=== PATIENT | male | born 1950 | race Hispanic/Latino ===

== ENCOUNTER 2017-09-15 19:16 | Emergency (ER) | payer MEDICARE ==
[2017-09-15 20:00] LABS: #Lymphocytes 0.5 thou/uL (1.20-3.40); #Monocytes 0.5 thou/uL (0.11-0.59); #Neutrophils 4.1 thou/uL (1.40-6.50); %Basophils 0.2 % (0.0-1.0); %Eosinophils 0.8 % (0.0-10.0); %Lymphocytes 8.8 % (21.0-51.0); %Monocytes 10.3 % (0.0-10.0); Hematocrit 43.1 % (42.0-52.0); Mean Platelet Volume 8.3 fL (7.4-10.4); Red Blood Cell (RBC) Count 4.64 mill/uL (4.70-6.10); White Blood Cell (WBC) Count 5.1 thou/uL (4.8-10.8)
--- NOTE | 2017-09-15 20:11 | RAD ---
CHEST ONE VIEW: 09/15/17 HISTORY: Shortness of breath. COMPARISON: Chest one view 12/18/15. FINDINGS: Heart size is enlarged. Mild pulmonary venous congestion. No pneumothorax. Cardiac device is present with single lead defibrillator. Lead in good position. IMPRESSION: Cardiomegaly and mild pulmonary venous congestion. POS: [facility]
[2017-09-15 20:25] LABS: Troponin I 0.026 ng/mL (< 0.028)
[2017-09-15 20:33] LABS: Lactic Acid - Sepsis 2.6 mmol/L (0.5-2.2)
[2017-09-15 20:58] LABS: Bilirubin Negative (Negative); Blood, Urine Negative (Negative); Glucose, Urine (Dipstick) Negative (Negative); Ketone, Urine Negative (Negative); Nitrite Negative (Negative); Protein, Urine (Dipstick) Negative (Neg-Trace); Urobilinogen 0.2 mg/dL (0.2-1.0)
[2017-09-15 21:00] LABS: Bacteria/HPF None Seen HPF (None Seen); Hyaline Casts/LPF 0-3 HYALINE CAST LPF (0-3 Hyaline); RBC/HPF None Seen HPF (0-3); Squamous Epithelial None Seen HPF (0-3); WBC/HPF 0-3 HPF (0-3)
[2017-09-15 21:13] LABS: Calcium 9.5 mg/dL (7.8-10.44); Chloride 100 mmol/L (98-107)
[2017-09-15 21:14] LABS: Globulin 3.7 g/dL (2.4-3.5); Protein, Total 8.2 g/dL (5.8-8.1)
[2017-09-15 21:15] LABS: Anion Gap 17 mmol/L (10-20); Carbon Dioxide 21 mmol/L (23-31)
[2017-09-15 21:17] LABS: Alkaline Phosphatase 72 U/L (40-150); Calc. Creatinine Clearance 0 mL/min (70-130); Estimated GFR-MDRD 65
[2017-09-15 21:18] LABS: BUN (Urea Nitrogen) 16 mg/dL (8.4-25.7)
[2017-09-15 21:19] LABS: AST (SGOT) 24 U/L (5-34)
[2017-09-15 21:20] LABS: ALT (SGPT) 23 U/L (8-55); CK (CPK) 401 U/L (30-200)
== END 2017-09-16 00:58 | disposition home or self-care (01) ==
LOC: ERS 19:16
DX: I50.9 Heart failure, unspecified (principal); J06.9 Acute upper respiratory infection, unspecified; I25.2 Old myocardial infarction; Z87.891 Personal history of nicotine dependence
CPT/HCPCS: 36415; 71010; 80053; 81003; 81015; 82553; 83605; 83880; 84484; 85025; 87040; 93005; 94760; 96374; J0696

== ENCOUNTER 2018-01-12 19:12 | Inpatient (IN) | payer MEDICARE ==
[2018-01-12 19:51] LABS: Hemoglobin 14.1 g/dL (14.0-18.0); Mean Corpuscular HGB CONC 33.5 g/dL (32.0-36.0); Mean Corpuscular Hemoglobin 30.4 pg (27.0-31.0); Mean Corpuscular Volume 90.6 fl (80.0-94.0); Mean Platelet Volume 7.2 fL (7.4-10.4); Platelet Count 145 thou/uL (130-400); RBC Distribution Width 13.2 % (11.5-14.5); Red Blood Cell (RBC) Count 4.65 mill/uL (4.70-6.10); White Blood Cell (WBC) Count 10.7 thou/uL (4.8-10.8)
[2018-01-12 20:05] LABS: Band 18 % (5-11); Lymphocytes 4 % (21-51); MDiff Complete? YES; Monocytes 7 % (0-10); Neutrophil 70 % (42-75); PLT Morphology Comment Appears Adequate; RBC Morphology Normal; Reactive Lymphocytes 1 % (0-10)
[2018-01-12 20:13] LABS: ALT (SGPT) 19 U/L (8-55); AST (SGOT) 21 U/L (5-34); Albumin 3.9 g/dL (3.4-4.8); Alkaline Phosphatase 75 U/L (40-150); Anion Gap 13 mmol/L (10-20); BUN (Urea Nitrogen) 23 mg/dL (8.4-25.7); Bilirubin, Total 0.4 mg/dL (0.2-1.2); CK (CPK) 263 U/L (30-200); Calc. Creatinine Clearance 0 mL/min (70-130); Calcium 9.2 mg/dL (7.8-10.44); Carbon Dioxide 22 mmol/L (23-31); Chloride 103 mmol/L (98-107); Estimated GFR-MDRD 58; Globulin 3.3 g/dL (2.4-3.5); Glucose 158 mg/dL (80-115); Potassium 4.4 mmol/L (3.5-5.1); Protein, Total 7.2 g/dL (5.8-8.1); Sodium 134 mmol/L (136-145)
[2018-01-12 20:17] LABS: CKMB 4.4 ng/mL (0-6.6); Troponin I 0.039 ng/mL (< 0.028)
--- NOTE | 2018-01-12 20:23 | RAD ---
FRONTAL RADIOGRAPH CHEST 01/12/18 COMPARISON: 09/15/17 HISTORY: Shortness of breath, fall. FINDINGS: Midline sternotomy wires are present, fractured, and unchanged. Stable enlargement of the cardiac julieta houette. Single lead AICD present in stable position. There is diffuse increased linear interstitial density with pulmonary hyperinflation. There is hazy increased density noted in the cardiophrenic angle region on the right, new. This may represent medial right basilar volume loss or infectious pneumonitis. IMPRESSION: Hazy new increased density is seen in the medial right lung base. This could reflect infectious pneum onitis/aspiration. Recommend followup PA and lateral imaging of the chest following treatment to docu ment resolution. POS: [facility]
[2018-01-12] MEDS ORDERED: Azithromycin 250 MG TAB ONE (21:01)
--- NOTE | 2018-01-12 23:28 | PDOC.FPRHP ---
- History of Present Illness Chief Complaint: SOB History of Present Illness: 67 yo male presents with SOB for one month. Patient is not a great historian. He states he is normally SOB when walking, but it has gotten much worse to the point he can't walk across a room today. He notes he also fell down today because of his sob and weakness. Patient also states he had some left arm pain yesterday while walking. He has longstanding PAD that he sees Dr. Mayorga for and would like to have a stent placed in his right leg. He notes he has long standing lower extremity edema that is worse on the right. He denies chest pain , vision changes, unilateral weakness. He states he is able to lay flat in a bed. He does admit to 3 episodes of vomiting that occurred today. He states that he is compliant with his medications, but he did admit that he hasn't taken his Furosemide in over 2 weeks. His brother states that he often does not take his medications as prescribed. No other complaints today. ED Course: Rocephin Azithromycin - Allergies/Adverse Reactions Allergies Allergy/AdvReac Type Severity Reaction Status Date / Time No Known Allergies Allergy Verified 01/13/18 00:37 - Home Medications Medication Instructions Recorded Confirmed Type Aspirin [Aspirin Chewable Tablet] 81 mg PO DAILY #0 tab 12/17/15 01/13/18 Rx Atorvastatin Calcium [Lipitor] 40 mg PO HS #0 tab 12/17/15 01/13/18 Rx Metolazone [Zaroxolyn] 5 mg PO DAILY #0 tab 12/17/15 01/13/18 Rx Potassium Chloride [K-Dur] 20 meq PO DAILY #0 tab 12/17/15 01/13/18 Rx Carvedilol [Coreg] 6.25 mg PO BID 01/12/18 01/13/18 History Furosemide [Lasix] 40 mg PO DAILY 01/12/18 01/13/18 History Spironolactone 25 mg PO DAILY 01/12/18 01/13/18 History Clopidogrel Bisulfate [Plavix] 75 mg PO Q2DAYS 01/13/18 01/13/18 History Comments: Medication reconciliation was completed following an ED visit in August 2017. Patient states he does not know the medications he takes off the top of his head. He notes that he takes 7 medications. Further medication confirmation may be needed. - History PMHx: CHF, PA, PAD PSHx: Balloon Stent to Left leg 2017, 3 vessel CABG 2016, Skin graft as child. FHx: Heart Disease Social: Denies alcohol or illicit drug use. Patient had extensive smoking history quit in 2016. - Review of Systems General: denies: fever/chills, weight/appetite/sleep changes Eyes: denies: eye pain ENT: denies: nasal congestion, rhinorrhea Respiratory: reports: shortness of breath. denies: cough, congestion Cardiovascular: denies: chest pain, palpitation, orthopnea Gastrointestinal: reports: nausea, vomiting. denies: diarrhea Genitourinary: denies: incontinence, dysuria Skin: denies: rashes, lesions, jaundice Musculoskeletal: reports: swelling. denies: pain, tenderness, stiffness Neurological: denies: numbness, syncope Psychological: denies: anxiety, depression - Vital signs BP: [114/73] HR: [101] RR: [26] Tmax: [99.7] Pox: [96]% on [3L] Wt: [143kg] - Physical Exam Constitutional: NAD HEENT: PERRLA, grossly normal vision, grossly normal hearing, normal nasal mucosa, MMM Neck: supple, trachea midline Chest: no-tender to palpation (pacemaker device under skin.) Heart: RRR, normal S1/S2 -Heart: 3+ pitting edema bilaterally. Right lower leg swelling worse than Left. Lungs: no wheezing -Lungs: Diminished breath sounds bilaterally. No crackles or wheezes present. Abdomen: soft, non-tender, bowel sounds present, no masses/distention Musculoskeletal: ROM grossly normal Neurological: no focal deficit, CN II-XII intact -Neurological: Sensation deficit to Right lower extremity, longstanding. -Skin: Evidence of venous stasis of lower extremities worse on Right. Psychiatric: normal mood and affect, good judgment and insight, intact recent and remote memory FMR H&P: Results - Labs Result Diagrams: 01/12/18 19:40 01/13/18 02:10 Lab results: WBC 10.7 thou/uL (4.8-10.8) 01/12/18 19:40 Hgb 14.1 g/dL (14.0-18.0) 01/12/18 19:40 Hct 42.1 % (42.0-52.0) 01/12/18 19:40 MCV 90.6 fl (80.0-94.0) 01/12/18 19:40 Plt Count 145 thou/uL (130-400) 01/12/18 19:40 Band Neuts % (Manual) 18 % (5-11) H 01/12/18 19:40 Sodium 134 mmol/L (136-145) L 01/12/18 19:46 Potassium 4.4 mmol/L (3.5-5.1) 01/12/18 19:46 Chloride 103 mmol/L (98-107) 01/12/18 19:46 Carbon Dioxide 22 mmol/L (23-31) L 01/12/18 19:46 BUN 23 mg/dL (8.4-25.7) 01/12/18 19:46 Creatinine 1.23 mg/dL (0.6-1.3) 01/12/18 19:46 Glucose 158 mg/dL (80-115) H 01/12/18 19:46 Calcium 9.2 mg/dL (7.8-10.44) 01/12/18 19:46 Total Bilirubin 0.4 mg/dL (0.2-1.2) 01/12/18 19:46 AST 21 U/L (5-34) 01/12/18 19:46 ALT 19 U/L (8-55) 01/12/18 19:46 Alkaline Phosphatase 75 U/L (40-150) 01/12/18 19:46 Creatine Kinase 263 U/L (30-200) H 01/12/18 19:46 CK-MB (CK-2) 4.4 ng/mL (0-6.6) 01/12/18 19:40 B-Natriuretic Peptide 108.1 pg/mL (0-100) H 01/12/18 19:41 Serum Total Protein 7.2 g/dL (5.8-8.1) 01/12/18 19:46 Albumin 3.9 g/dL (3.4-4.8) 01/12/18 19:46 - EKG Interpretation EK lead EKG shows, sinus tachycardia, Rate (beats per minute): 105, ST segments normal, T waves normal, [place] normal, Other findings include:, septal infarct, age undetermined. FMR H&P: A/P - Problem List (1) Acute respiratory failure with hypoxia Current Visit: Yes Status: Acute Code(s): J96.01 - ACUTE RESPIRATORY FAILURE WITH HYPOXIA (2) CAP (community acquired pneumonia) Current Visit: Yes Status: Acute Code(s): J18.9 - PNEUMONIA, UNSPECIFIED ORGANISM (3) CHF (congestive heart failure) Current Visit: No Status: Chronic Code(s): I50.9 - HEART FAILURE, UNSPECIFIED (4) S/P CABG (coronary artery bypass graft) Current Visit: No Status: Chronic Code(s): Z95.1 - PRESENCE OF AORTOCORONARY BYPASS GRAFT (5) Elevated troponin Current Visit: Yes Status: Acute Code(s): R74.8 - ABNORMAL LEVELS OF OTHER SERUM ENZYMES (6) Hyperglycemia Current Visit: Yes Status: Acute Code(s): R73.9 - HYPERGLYCEMIA, UNSPECIFIED - Plan 1. Acute Hypoxic Respiratory Failure - New O2 requirement to 3L - Keep sats above 92% - Will attempt wean O2 when clinical able 2. CAP vs Pneumonitis - CXR shows hazy new infiltrate in medial R lung base - Repeat CXR ordered - Continue Antibiotics - Continue O2 supplementation. - Good Pulmonary Hygiene 3. CHF - Restart his home regimen - Strict I & Os - BNP 108 4. s/p CABG - Continue home medications when known. 5. Elevated Troponins - Trend - Will repeat EKG if symptomatic 6. Hyperglycemia - Check HgbA1c - Make treatment changes if needed CODE STATUS: FULL CODE Disposition: Stable, Will admit to Telemetry. FMR H&P: Upper Level - Pertinent history 67 yo male here for SOB and CP. Patient is poor historian, limiting information obtained in interview. Brother in room who provides some history. Hx of PA with 3v CABG in 2016, CHF, pacemaker. Patient reports 1 month history of worsening SOB, currently at rest. Assoc CP today at rest, emesis x 3, left shoulder pain when walking yesterday. Endorses compliance with medications, but then admits to not taking furosemide in the past 2 weeks. Only provider he sees is Dr. Mayorga, last saw him 1 month ago. - Pertinent findings Pulm: decreased breath sounds in all miller Card: mild tach, regular rhythm Extremities: b/l pitting edema, 2+ on left; 3+ on right Neuro: decreased sensation on right lower extremity - Plan Date/Time: 01/12/18 8526 IDavid DO, have evaluated this patient and agree with findings/plan as outlined by rn internal medicine resident. Pertinent changes/additions are listed here. 1. Pneumonitis vs PNA vs fluid overload Patient received 1 round of zithromycin/rocephin; will continue with that regimen 2. indeterminate trops continue to trend; EKG showed sinus tach; continue home meds 3. Hx CHF continue home meds, check ECHO; consider consult of cards tomorrow 4. Hx CAD Attending Addendum - Attending Addendum Date/Time: 01/13/18 0175 I personally evaluated the patient and discussed the management with Dr. Jay. I agree with the History, Examination, Assessment and Plan documented above with any addition or exceptions noted below. The patient presented with a 4 week history of worsening shortness of breath. He has had a cough but has not been taking his lasix for about 2 weeks. He was noted to have a possible pneumonia on XR. He is now requiring oxygen. 1. acute hypoxic respiratory failure, 2. CAP, 3. CHF. Will continue antibiotics rocephin and azithromycin, repeat CXR. Give IV lasix today. Pt is mildly tachycardic and with new O2 requirement will check D-dimer. Monitor I/O.
[2018-01-12] MEDS ORDERED: Acetaminophen 325 MG TAB PO PRN (23:44)
[2018-01-12] MEDS ORDERED: Ondansetron ODT 4 MG TAB PO PRN (23:44)
[2018-01-12 23:48] LABS: Troponin I 0.062 ng/mL (< 0.028)
[2018-01-13 02:38] LABS: Hemoglobin A1c 6.6 % (4.0-6.0)
[2018-01-13 02:43] LABS: Troponin I 0.062 ng/mL (< 0.028)
[2018-01-13 03:05] LABS: Anion Gap 11 mmol/L (10-20); BUN (Urea Nitrogen) 25 mg/dL (8.4-25.7); Calc. Creatinine Clearance 137 mL/min (70-130); Calcium 9.4 mg/dL (7.8-10.44); Carbon Dioxide 24 mmol/L (23-31); Chloride 103 mmol/L (98-107); Estimated GFR-MDRD 65; Glucose 140 mg/dL (80-115); Potassium 4.4 mmol/L (3.5-5.1); Sodium 134 mmol/L (136-145)
[2018-01-13 05:36] LABS: Troponin I 0.052 ng/mL (< 0.028)
--- NOTE | 2018-01-13 05:46 | PDOC.FM ---
- Subjective Subjective: This morning patient is sitting at the side of the bed, he states his back was getting sore from laying down. He denies orthopnea or cough but is still feeling SOB. He states he gets SOB walking to the restroom, this has been going on for 2 weeks or so. He has not taken his medications in 2 weeks. He states he got fed up with all the medications and was feeling "ready for it to end." He denies suicidal ideation but does feel ready to at times. He states he does still enjoy going to [employer] for coffee with his friends daily. Patient would like to be started on antidepressant and will try to establish PCP. - Objective Vital Signs & Weight: Vital Signs (12 hours) Temp Pulse Resp BP BP Pulse Ox 01/13/18 03:32 99.8 F H 90 36 H 121/59 L 91 L 01/13/18 00:38 95 01/13/18 00:05 98.9 F 102 H 24 H 132/68 95 Weight Weight 154.221 kg I&O: 01/11/18 01/12/18 01/13/18 06:59 06:59 06:59 Intake Total 240 Output Total 0 Balance 240 Result Diagrams: 01/12/18 19:40 01/13/18 02:10 <David Zacarias - Last Filed: 01/13/18 07:26> - Objective Vital Signs & Weight: Vital Signs (12 hours) Temp Pulse Resp BP Pulse Ox 01/13/18 08:15 99.8 F H 90 36 H 01/13/18 03:32 99.8 F H 90 36 H 121/59 L 91 L Weight Weight 154.221 kg I&O: 01/12/18 01/13/18 01/14/18 06:59 06:59 06:59 Intake Total 240 Output Total 0 Balance 240 Result Diagrams: 01/12/18 19:40 01/13/18 02:10 <Idalmis Vidal - Last Filed: 01/13/18 12:47> Phys Exam - Physical Examination Constitutional: NAD HEENT: PERRLA, moist MMs Neck: no nodes, full ROM Respiratory: no wheezing decreased breath sounds at R base, no crackles Cardiovascular: RRR, no significant murmur Gastrointestinal: soft, non-tender, no distention, positive bowel sounds +2 pitting edema to the ankle bilaterally, pulses diminished Neurological: non-focal, moves all 4 limbs Psychiatric: normal affect, A&O x 3 Skin: no rash, cap refill <2 seconds <David Zacarias - Last Filed: 01/13/18 07:26> Dx/Plan (1) Acute respiratory failure with hypoxia Code(s): J96.01 - ACUTE RESPIRATORY FAILURE WITH HYPOXIA Status: Acute (2) CAP (community acquired pneumonia) Code(s): J18.9 - PNEUMONIA, UNSPECIFIED ORGANISM Status: Acute (3) Elevated troponin Code(s): R74.8 - ABNORMAL LEVELS OF OTHER SERUM ENZYMES Status: Acute (4) Hyperglycemia Code(s): R73.9 - HYPERGLYCEMIA, UNSPECIFIED Status: Acute (5) CHF (congestive heart failure) Code(s): I50.9 - HEART FAILURE, UNSPECIFIED Status: Chronic (6) S/P CABG (coronary artery bypass graft) Code(s): Z95.1 - PRESENCE OF AORTOCORONARY BYPASS GRAFT Status: Chronic - Plan Plan: # Acute Hypoxic Respiratory Failure - Still on 3L this AM, satting to low 90s - Keep sats above 92% - Will attempt wean O2 when clinical able - Duonebs PRN # CAP vs Pneumonitis - CXR shows hazy new infiltrate in medial R lung base - Good Pulmonary Hygiene - 2V CXR this AM - cont azithromycin, rocephin # CHF - Restart his home regimen - Strict I & Os - BNP 108 - states ankle edema at baseline - echo ordered # s/p CABG - Continue home medications # Elevated Troponins - 0.039 -> 0.062-> 0.062 -> 0.052 # Hyperglycemia - A1C 6.6 # Depression - start lexapro 10mg - f/u with PCP, refer for psychotherapy code: full Disposition: Stable, anticipate 1-2 day stay, possible rehab placement <David Zacarias - Last Filed: 01/13/18 07:26> (1) Acute respiratory failure with hypoxia Code(s): J96.01 - ACUTE RESPIRATORY FAILURE WITH HYPOXIA Status: Acute (2) CAP (community acquired pneumonia) Code(s): J18.9 - PNEUMONIA, UNSPECIFIED ORGANISM Status: Acute (3) CHF (congestive heart failure) Code(s): I50.9 - HEART FAILURE, UNSPECIFIED Status: Chronic (4) S/P CABG (coronary artery bypass graft) Code(s): Z95.1 - PRESENCE OF AORTOCORONARY BYPASS GRAFT Status: Chronic (5) Elevated troponin Code(s): R74.8 - ABNORMAL LEVELS OF OTHER SERUM ENZYMES Status: Acute (6) Hyperglycemia Code(s): R73.9 - HYPERGLYCEMIA, UNSPECIFIED Status: Acute <Idalmis Vidal - Last Filed: 01/13/18 12:47> Attending Addendum - Attending Addendum Date/Time: 01/13/18 [id number] I personally evaluated the patient and discussed the management with Dr. Zacarias. I agree with the History, Examination, Assessment and Plan documented above with any addition or exceptions noted below. Will start on lexapro. Give a dose of IV lasix today. Check D-dimer. Try to wean O2. Continue antibiotics. <Idalmis Vidal - Last Filed: 01/13/18 12:47>
[2018-01-13] MEDS ORDERED: Furosemide 20 MG/2 ML VIAL SLOW IVP SCH (06:00)
[2018-01-13] MEDS: Enoxaparin Sodium 40 MG/0.4 ML SYRINGE SC SCH (09:14)
[2018-01-13] MEDS: Potassium Chloride 20 MEQ TAB PO SCH (09:15)
[2018-01-13] MEDS: Furosemide 80 MG TAB PO SCH (09:15)
[2018-01-13] MEDS: Carvedilol 3.125 MG TAB PO SCH ×2 (09:15→16:15)
[2018-01-13] MEDS: Clopidogrel Bisulfate 75 MG TAB PO SCH (09:16)
[2018-01-13] MEDS: Metolazone 5 MG TAB PO SCH (09:16)
[2018-01-13] MEDS: Escitalopram Oxalate 10 mg Tablet PO SCH (09:16)
--- NOTE | 2018-01-13 10:09 | PDOC.EVN ---
Event Note - Event Note Event Note: Ordered d-dimer as pt is low-risk for PE w/ Wells of 3 d-dimer barely elevated at 0.44 Will treat patient's pna, diurese, and follow clinically will do CTA if patient does not improve with treatment
--- NOTE | 2018-01-13 14:13 | RAD ---
CHEST 2 VIEWS: Date: 01/13/18 HISTORY: Pneumonia. COMPARISON: Chest radiograph prior day. FINDINGS: Heart size is enlarged. Improvement in right basilar air space opacity. There is some atelectasis in the lung bases. Defibrillator is present. Multiple median sternotomy wir es which are fractured. IMPRESSION: Improving opacity in the right lung base. POS: [facility]
--- NOTE | 2018-01-13 16:12 | PDOC.EVN ---
Event Note - Event Note Event Note: Spoke to on-call Journeyman Molder regarding PAD, leg swelling Patient's D-dimer was 0.44, no sign of infection, SOB improving per patient Will plan to consult patient's primary sql report developer Dr. Webber tomorrow for evaluation of PAD
[2018-01-13] MEDS ORDERED: Azithromycin 500 MG in Sodium Chloride 0.9% 250 ML 250 ML IVPB SCH (20:00)
[2018-01-13] MEDS ORDERED: cefTRIAXone\\ROCEPHIN 1 GM in Sodium Chloride 0.9% 100 ML IVPB SCH (20:00)
[2018-01-13] MEDS: Atorvastatin Calcium 40 MG TAB PO SCH (21:31)
[2018-01-13] MEDS: cefTRIAXone\\ROCEPHIN 1 GM, Syringe 0.4 ML in Sterile Water 9.6 ML SLOW IVP SCH (21:31)
[2018-01-14 07:10] LABS: Hemoglobin 13.8 g/dL (14.0-18.0); Mean Corpuscular HGB CONC 34.2 g/dL (32.0-36.0); Mean Corpuscular Hemoglobin 31.3 pg (27.0-31.0); Mean Corpuscular Volume 91.5 fl (80.0-94.0); Mean Platelet Volume 8.2 fL (7.4-10.4); Platelet Count 132 thou/uL (130-400); RBC Distribution Width 13.3 % (11.5-14.5); Red Blood Cell (RBC) Count 4.39 mill/uL (4.70-6.10); White Blood Cell (WBC) Count 6.7 thou/uL (4.8-10.8)
[2018-01-14 07:24] LABS: Anion Gap 13 mmol/L (10-20); BUN (Urea Nitrogen) 26 mg/dL (8.4-25.7); Calc. Creatinine Clearance 132 mL/min (70-130); Calcium 9.3 mg/dL (7.8-10.44); Carbon Dioxide 25 mmol/L (23-31); Chloride 98 mmol/L (98-107); Estimated GFR-MDRD 66; Glucose 129 mg/dL (80-115); Potassium 4.1 mmol/L (3.5-5.1); Sodium 132 mmol/L (136-145)
--- NOTE | 2018-01-14 07:53 | ULT ---
VENOUS DUPLEX SONOGRAM RIGHT LOWER EXTREMITY: Date: 01/14/18 HISTORY: Right leg pain and edema. FINDINGS: The right common femoral vein and greater saphenous junction were evaluated along with the femoral, d eep femoral, popliteal, and posterior tibial veins. There is good color and spectral Doppler flow, co mpression, and augmentation. IMPRESSION: No sonographic evidence of deep venous thrombosis within the right lower extremity. POS: [facility]
--- NOTE | 2018-01-14 08:37 | PDOC.FM ---
- Subjective Subjective: This morning the patient states that he is not feeling SOB although he does get SOB when sitting up to the side of the bed. He is still on 2.5L. He denies leg pain except when walking. The patient denies cough or sputum production. - Objective Vital Signs & Weight: Vital Signs (12 hours) Temp Pulse Resp BP Pulse Ox 01/14/18 04:00 97.5 F L 70 17 117/55 L 95 01/14/18 02:31 94 L Weight Weight 146.737 kg I&O: 01/13/18 01/14/18 01/15/18 06:59 06:59 06:59 Intake Total 240 1720 Output Total 0 3000 Balance 240 -1280 Result Diagrams: 01/14/18 06:55 01/14/18 06:55 <David Zacarias - Last Filed: 01/14/18 08:40> - Objective Vital Signs & Weight: Vital Signs (12 hours) Temp Pulse Pulse Pulse Resp BP BP 01/14/18 12:50 72 20 01/14/18 11:57 69 67 112/72 128/60 01/14/18 07:50 98.7 F 74 18 01/14/18 04:00 97.5 F L 70 17 01/14/18 02:31 BP Pulse Ox Pulse Ox Pulse Ox 01/14/18 12:50 117/59 L 96 01/14/18 11:57 96 97 01/14/18 07:50 123/58 L 92 L 01/14/18 04:00 117/55 L 95 01/14/18 02:31 94 L Weight Weight 146.737 kg I&O: 01/13/18 01/14/18 01/15/18 06:59 06:59 06:59 Intake Total 240 1720 Output Total 0 3000 Balance 240 -1280 Result Diagrams: 01/14/18 06:55 01/14/18 06:55 <Abiel Godinez - Last Filed: 01/14/18 13:59> Phys Exam - Physical Examination Constitutional: NAD HEENT: PERRLA, moist MMs Neck: no nodes, full ROM Respiratory: no wheezing mild decreased air movement, decreased breath sounds at RLL, no crackles Cardiovascular: RRR, no significant murmur, no rub Gastrointestinal: soft, non-tender, no distention, positive bowel sounds +3 pitting edema on the R, more erythematous up to the level of the midcalf Neurological: non-focal, normal sensation, moves all 4 limbs patient has increased TTP on RLE Psychiatric: normal affect, A&O x 3 <David Zacarias - Last Filed: 01/14/18 08:40> Dx/Plan (1) Acute respiratory failure with hypoxia Code(s): J96.01 - ACUTE RESPIRATORY FAILURE WITH HYPOXIA Status: Acute (2) CAP (community acquired pneumonia) Code(s): J18.9 - PNEUMONIA, UNSPECIFIED ORGANISM Status: Acute (3) Elevated troponin Code(s): R74.8 - ABNORMAL LEVELS OF OTHER SERUM ENZYMES Status: Acute (4) Hyperglycemia Code(s): R73.9 - HYPERGLYCEMIA, UNSPECIFIED Status: Acute (5) CHF (congestive heart failure) Code(s): I50.9 - HEART FAILURE, UNSPECIFIED Status: Chronic (6) S/P CABG (coronary artery bypass graft) Code(s): Z95.1 - PRESENCE OF AORTOCORONARY BYPASS GRAFT Status: Chronic - Plan Plan: # Acute Hypoxic Respiratory Failure - Still on 2.5L this AM, satting to low 90s - Keep sats above 92% - Patient still SOB when sitting up to the side of the bed - Duonebs PRN # CAP vs Pneumonitis - CXR shows hazy new infiltrate in medial R lung base - 2V CXR showed RLL opacity - cont azithromycin, rocephin # PAD - previous L femoral bypass - known R femoral occlusion from groin to knee per Cardiology - spoke to Dr. Mayorga this AM, will visit with patient - Doppler US negative for DVT on R, d-dimer 0.44 # Cellulitus vs Stasis Dermatitis - +3 pitting on the right - redness to the level of mid-calf - started Vancomycin 01/14 - blood cultures # CHF - Restart his home regimen - Lasix IV 40mg daily - Strict I & Os - BNP 108 - echo shows EF 50% # s/p CABG - Continue home medications # Elevated Troponins - 0.039 -> 0.062-> 0.062 -> 0.052 # Hyperglycemia - A1C 6.6 # Depression - start lexapro 10mg - f/u with PCP, refer for psychotherapy code: full Disposition: Stable, 1-2 days pending cardiology workup resolution of leg erythema <David Zacarias - Last Filed: 01/14/18 08:40> Attending Addendum - Attending Addendum Date/Time: 01/14/18 8880 I personally evaluated the patient and discussed the management with Dr. Zacarias. I agree with the History, Examination, Assessment and Plan documented above with any addition or exceptions noted below. Patient here and admitted for CAP. He is on Rocephin and Azithro and is feeling improved. Still has supplemental O2 requirement but has been able to ambulate a little further today. He has some expanding redness and warmth on the R lower extremity with known association of severe vascular disease in that leg. We will start him on Vancomycin and maria c the erythema to see how it responds. Awaiting Cardiology and CV input on whether anything can be done for his vascular disease. His dopplers were negative for DVT. Has some fluid overload and will try to diurese him a little better today. <Abiel Godinez - Last Filed: 01/14/18 13:59>
[2018-01-14] MEDS ORDERED: Furosemide 40 MG/4 ML VIAL SLOW IVP SCH ×2 (09:00→10:45)
[2018-01-14] MEDS: Potassium Chloride 20 MEQ TAB PO SCH (10:31)
[2018-01-14] MEDS: Clopidogrel Bisulfate 75 MG TAB PO SCH (10:31)
[2018-01-14] MEDS: Metolazone 5 MG TAB PO SCH (10:31)
[2018-01-14] MEDS: Carvedilol 3.125 MG TAB PO SCH ×2 (10:31→18:31)
[2018-01-14] MEDS: Azithromycin 250 MG TAB PO SCH (10:32)
[2018-01-14] MEDS: Escitalopram Oxalate 10 mg Tablet PO SCH (10:32)
[2018-01-14] MEDS: Enoxaparin Sodium 40 MG/0.4 ML SYRINGE SC SCH (10:34)
[2018-01-14] MEDS: Furosemide 80 MG TAB PO SCH (10:48)
[2018-01-14 14:04] VITALS: BMI 49.1
[2018-01-14] MEDS: cefTRIAXone\\ROCEPHIN 1 GM, Syringe 0.4 ML in Sterile Water 9.6 ML SLOW IVP SCH (20:36)
[2018-01-14] MEDS: Atorvastatin Calcium 40 MG TAB PO SCH (20:36)
[2018-01-15 06:34] LABS: Anion Gap 14 mmol/L (10-20); BUN (Urea Nitrogen) 34 mg/dL (8.4-25.7); Calc. Creatinine Clearance 107 mL/min (70-130); Calcium 9.6 mg/dL (7.8-10.44); Carbon Dioxide 32 mmol/L (23-31); Chloride 94 mmol/L (98-107); Estimated GFR-MDRD 55; Glucose 124 mg/dL (80-115); Potassium 3.9 mmol/L (3.5-5.1); Sodium 136 mmol/L (136-145)
--- NOTE | 2018-01-15 07:47 | PDOC.FM ---
- Subjective Subjective: This morning the patient denies shortness of breath or leg pain. He states he was able to walk skilled nursing down the hallway yesterday. He denies issues with PO intake. Upon arrival in the room this AM the patient's nasal canula was hanging outside of his nose. - Objective Vital Signs & Weight: Vital Signs (12 hours) Pulse Resp Pulse Ox 01/15/18 07:33 69 16 97 01/15/18 00:14 95 Weight Admit Weight 155.582 kg Weight 139.57 kg I&O: 01/14/18 01/15/18 01/16/18 06:59 06:59 06:59 Intake Total 1720 1380 Output Total 3000 4175 Balance -9361 -0011 Result Diagrams: 01/14/18 06:55 01/15/18 06:16 <David Zacarias - Last Filed: 01/15/18 07:50> - Objective Vital Signs & Weight: Vital Signs (12 hours) Temp Pulse Pulse Pulse Resp BP BP 01/15/18 11:32 62 20 01/15/18 09:12 97.6 F 01/15/18 08:41 73 62 134/61 132/73 01/15/18 08:00 01/15/18 07:33 69 16 01/15/18 07:17 60 18 BP Pulse Ox Pulse Ox Pulse Ox 01/15/18 11:32 115/66 93 L 01/15/18 09:12 01/15/18 08:41 96 95 01/15/18 08:00 97 01/15/18 07:33 97 01/15/18 07:17 121/59 L 98 Weight Admit Weight 155.582 kg Weight 146.692 kg I&O: 01/14/18 01/15/18 01/16/18 06:59 06:59 06:59 Intake Total 1720 1380 Output Total 3000 4175 Balance -6214 -3439 Result Diagrams: 01/14/18 06:55 01/15/18 06:16 <Wood Rudd - Last Filed: 01/15/18 12:39> Phys Exam - Physical Examination Constitutional: NAD HEENT: PERRLA, moist MMs Neck: no nodes, full ROM Mild exp wheezes bilaterally, good air movement, mild congestion RLL Cardiovascular: RRR, no significant murmur Gastrointestinal: soft, non-tender, no distention, positive bowel sounds +3 pitting edema to the mid calfe on R, +3 to ankle on L Neurological: non-focal, moves all 4 limbs Psychiatric: normal affect, A&O x 3 Skin: no rash, cap refill <2 seconds <David Zacarias - Last Filed: 01/15/18 07:50> Dx/Plan (1) Acute respiratory failure with hypoxia Code(s): J96.01 - ACUTE RESPIRATORY FAILURE WITH HYPOXIA Status: Acute (2) CAP (community acquired pneumonia) Code(s): J18.9 - PNEUMONIA, UNSPECIFIED ORGANISM Status: Acute (3) Elevated troponin Code(s): R74.8 - ABNORMAL LEVELS OF OTHER SERUM ENZYMES Status: Acute (4) Hyperglycemia Code(s): R73.9 - HYPERGLYCEMIA, UNSPECIFIED Status: Acute (5) CHF (congestive heart failure) Code(s): I50.9 - HEART FAILURE, UNSPECIFIED Status: Chronic (6) S/P CABG (coronary artery bypass graft) Code(s): Z95.1 - PRESENCE OF AORTOCORONARY BYPASS GRAFT Status: Chronic - Plan Plan: # Acute Hypoxic Respiratory Failure - on 2L overnight, NC hanging out of nose this morning - Keep sats above 92% - Patient still SOB when sitting up to the side of the bed - Duonebs PRN - walking program # CAP vs Pneumonitis - CXR shows hazy new infiltrate in medial R lung base - 2V CXR showed RLL opacity - cont azithromycin, rocephin # PAD - previous L femoral bypass - known R femoral occlusion from groin to knee per Cardiology - Doppler US negative for DVT on R, d-dimer 0.44 - will f/u with Dr. Webber for future plan # Cellulitus vs Stasis Dermatitis - +3 pitting on the right - redness to the level of mid-calf - started Vancomycin 01/14 - blood cultures # CHF - Restart his home regimen - home oral 80mg lasix - Strict I & Os - BNP 108 - echo shows EF 50% # s/p CABG - Continue home medications # Elevated Troponins - 0.039 -> 0.062-> 0.062 -> 0.052 # Hyperglycemia - A1C 6.6 # Depression - start lexapro 10mg - f/u with PCP, refer for psychotherapy code: full Disposition: plan to look for placement today <David Zacarias - Last Filed: 01/15/18 07:50> Attending Addendum - Attending Addendum Date/Time: 01/15/18 8149 I personally evaluated the patient and discussed the management with Dr. Zacarias I agree with the History, Examination, Assessment and Plan documented above with any addition or exceptions noted below. Patient continue to improve looking into placement options not good candidate to return home at this time. Right lower extremity with stasis dermatitis complicated by cellulitis improved. History of PAD RLE not amenable to minimally invasive procedures patient asymptomatic at present regard claudication albeit minimal activity. <Wood Rudd - Last Filed: 01/15/18 12:39>
--- NOTE | 2018-01-15 09:08 | CON ---
DATE OF SERVICE: 01/14/2018 REASON FOR CONSULTATION: Acute on chronic systolic heart failure. HISTORY OF PRESENT ILLNESS: Mr. Santoro is a very pleasant 67-year-old gentleman who I had seen him i n the past. He has a history of [place], CAD status post bypass surgery in addition who has severe PVD. There has also been concern for noncompliance. He recently presented with increased shortness of janessa ath. He was initially diagnosed with pneumonia, placed on antibiotic therapy. He states he has had increased shortness of breath, increased weight and swelling. He was seen and e valuated in the office 2-3 months ago. At that time, he admitted to difficulty with compliance with sodium in addition to fluids. His medication list was also not updated and he was unsure of his medi cations. He says he has had PND, orthopnea and in addition he had significant lower extremity edema, right greater than left. 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 ALLERGIES: None. HOME MEDICATIONS: From his previous list, although unsure on accuracy, carvedilol, spironolactone, P lavix, Lasix, Lipitor, potassium, and metolazone. REVIEW OF SYSTEMS: Ten-point review of systems is reviewed and as above, otherwise negative. PHYSICAL EXAMINATION: GENERAL: Patient is a pleasant male/female who is in no acute distress. The patient appears his/her stated age. VITAL SIGNS: Blood pressure 121/57, pulse 64, temperature 97.5. NEUROLOGIC: The patient is alert and oriented times 3 with no focal neurologic deficits. HEENT: Sclerae without icterus. Mouth has moist mucous membranes with normal pallor. NECK: No JVD. Carotid upstroke brisk. No bruits bilaterally. LUNGS: Few crackles noted bilaterally. BACK: No scoliosis or kyphosis. CARDIAC: Regular rate and rhythm with normal S1 and S2. No S3 or S4 noted. No significant rubs, murmurs, thrills, or gallops noted throughout the precordium. PMI is not displa lexis. There is no parasternal heave. ABDOMEN: Soft, nontender, nondistended. No peritoneal signs present. No hepatosplenomegaly. No abnormal striae. EXTREMITIES: A 2+ to 3+ pitting edema, right greater than left. PERTINENT LABS: Hemoglobin 13.8, white blood cell count 6.7, platelet count 132. IMPRESSION: 1. Acute on chronic systolic heart failure. 2. Ischemic cardiomyopathy. 3. ? pneumonia. 4. Noncompliance. 5. Remote tobacco abuse. RECOMMENDATIONS: Again, I counseled Mr. Santoro on the importance of sodium discretion. He has a bro ther who appears frustrated was in the room. His brother continues to be concerned about lower extre mity edema. I did state this is likely multifactorial given his cardiomyopathy. Dietary discretion, increase fluids and unsure about current medications. I also stated the right greater than left akash ma is likely related to removal of saphenous vein graft versus bypass will always be larger than the left. From my standpoint, we would continue with metolazone in addition to Lasix. We will change Lasix to 40 mg IV b.i.d. Mr. Santoro continues to slowly increase in weight. In mid 2015, he weighed 267 and slowly increased into the lower 300. In 06/2017, he was a 310 and was seen and evaluated in the offi ce 3 weeks ago and was up to 336. Continue aggressive diuresis and antibiotic therapy as appropriate per primary team.
--- NOTE | 2018-01-15 09:14 | CON ---
DATE OF CONSULTATION: 01/15/2018 HISTORY OF PRESENT ILLNESS: Mr. Santoro is doing better. He has diuresed overnight. Again, weight f elt to be inaccurate. Per the chart, it appears his weight was 340 down to 323 now 307. So from the records, it appears he has lost 33 pounds, but only -3000 out net per I's and O's. PHYSICAL EXAMINATION: GENERAL: Patient is a pleasant male who is in no acute distress. The patient appears his stated age. VITAL SIGNS: Blood pressure 120/59, pulse 69, respirations 20. NEUROLOGIC: The patient is alert and oriented times 3 with no focal neurologic deficits. HEENT: Sclerae without icterus. Mouth has moist mucous membranes with normal pallor. NECK: No JVD. Carotid upstroke brisk. No bruits bilaterally. LUNGS: Clear to auscultation with unlabored respirations. BACK: No scoliosis or kyphosis. CARDIAC: Regular rate and rhythm with normal S1 and S2. No S3 or S4 noted. No significant rubs, murmurs, thrills, or gallops noted throughout the precordium. PMI is not displa lexis. There is no parasternal heave. ABDOMEN: Soft, nontender, nondistended. No peritoneal signs present. No hepatosplenomegaly. No abnormal striae. EXTREMITIES: A 2+ femoral and 2+ dorsalis pedis pulses. No cyanosis, clubbing, or edema. SKIN: No gross abnormalities. IMPRESSION: 1. Acute on chronic systolic heart failure. 2. Noncompliance. 3. Coronary artery disease. 4. Status post bypass surgery. 5. Ischemic cardiomyopathy. RECOMMENDATIONS: 1. Change p.o. to IV Lasix. 2. Again, employee counselor on salt discretion. 3. Continue to monitor potassium levels. 4. Bedside scale with daily weights.
[2018-01-15] MEDS: Metolazone 5 MG TAB PO SCH (09:21)
[2018-01-15] MEDS: Enoxaparin Sodium 40 MG/0.4 ML SYRINGE SC SCH (09:21)
[2018-01-15] MEDS: Furosemide 40 MG/4 ML VIAL SLOW IVP SCH ×2 (09:21→14:04)
[2018-01-15] MEDS: Azithromycin 250 MG TAB PO SCH (09:21)
[2018-01-15] MEDS: Potassium Chloride 20 MEQ TAB PO SCH (09:22)
[2018-01-15] MEDS: Clopidogrel Bisulfate 75 MG TAB PO SCH (09:22)
[2018-01-15] MEDS: Carvedilol 3.125 MG TAB PO SCH ×2 (09:22→17:28)
[2018-01-15] MEDS: Escitalopram Oxalate 10 mg Tablet PO SCH (09:22)
--- NOTE | 2018-01-15 10:39 | PQF ---
DATE: 01-15-18 ATTN: DR. CYNDI LONG / DR. CANDIDO GRAJEDA Please exercise your independent, professional judgment in responding to the clarification form. Clinical indicators are provided on the bottom of this form for your review Please check appropriate box(s): BMI > 40 with associated diagnosis of: (check one) [ ] Morbid (Severe) Obesity [ ] Due to excess calories [ ] Overweight [ ] Obesity [ ] Other diagnosis [ ] Unable to determine In addition, please specify: Present on Admission (POA): [ ] Yes [ ] No [ ] Unable to Determine For continuity of documentation, please document condition throughout progress notes and discharge summary. Thank You. BMI < 19 Under weight 19 - 24.9 Healthy 25.0 - 29.9 Slightly Overweight 30.0 - 34.9 Obese 35.0 - 39.9 Severely Obese 40.0 and Over Morbidly Obese CLINICAL INDICATORS - SIGNS / SYMPTOMS / LABS BMI of: 49.[address] RODRÍGUEZ 01-15-18: MR. PRUITT CONTINUES TO INCREASE IN WEIGHT. IN MID 2015, HE WEIGHED 267 AND SLOWLY INCREASED INTO THE LOWER 300. IN , HE WAS 310 AND WAS SEEN AND EVALUATED IN THE OFFICE 3 WKS AGO AND WAS UP TO 336. DENTAL SCHEDULER CONSULT 01-14-18: Patient has a very good appetite, but admits to "eating foods he knows he shouldn't" for the last month. He has been gaining weight, which he knows is fluid, UBW is 315 lbs. PT ASSESSMENT 01-13-18: Pt admitted /c SOB. Pt's admission complicated by continued SOB and R LE swelling. Pt will benefit from skilled PT services to improve endurance, functional mobility and gait. RISK FACTORS: H&P: PAD, CHF, [place], CABG X3, SKIN GRAFT A CHILD TREATMENTS: DENTAL SCHEDULER CONSULT 01-14-18: 1. Recommend a Heart Healthy/ Consistent Carb (2000 shannan) diet 2. RD to add SF Mighty Shakes BID to best meet estimated needs (This form is maintained as a part of the permanent medical record) 2014 [employer]. All Rights Reserved [email or web address] [email or web address] Office: [phone] [facility]
--- NOTE | 2018-01-15 11:00 | PQF ---
DATE: 01-15-18 ATTN: DR. CYNDI LONG/ DR. CANDIDO GRAJEDA Please exercise your independent, professional judgment in responding to the clarification form. Clinical indicators are provided on the bottom of this form for your review Please check appropriate box(s): [ ] Demand Ischemia [ ] VT (Type: ) [ ] Other diagnosis [ ] Unable to determine In addition, please specify: Present on Admission (POA): [ ] Yes [ ] No [ ] Unable to determine For continuity of documentation, please document condition throughout progress notes and discharge summary. Thank You. CLINICAL INDICATORS - SIGNS / SYMPTOMS/ LABS are present in the medical record: Lab Results: TROPONIN: 01-12-18: 0.039 0.062 01-13-18: 0.062 0.052 H&P: ACUTE ELEVATED TROPONIN RISK FACTORS: H&P: HX OF [place], CABG, PACEMAKER, CAD, PAD, ISCHEMIC CARDIOMYOPATHY TREATMENT: SERIES OF TROPONIN CARDIOLOGY CONSULT (This form is maintained as a part of the permanent medical record) 2014 [employer]. All Rights Reserved AMADO [email or web address] Office: [phone] [facility]
[2018-01-15 20:34] LABS: Vancomycin, Trough 20.2 ug/mL
[2018-01-15] MEDS: Atorvastatin Calcium 40 MG TAB PO SCH (20:48)
[2018-01-15] MEDS: cefTRIAXone\\ROCEPHIN 1 GM, Syringe 0.4 ML in Sterile Water 9.6 ML SLOW IVP SCH (20:49)
--- NOTE | 2018-01-16 08:09 | RAD ---
PORTABLE CHEST: Date: 01/16/18 PROVIDED CLINICAL HISTORY: Congestive heart failure. FINDINGS: Comparison with 01/13/18. The cardiac silhouette appears enlarged. Left subclavian cardiac pacing device is noted with lead tip overlying the expected location of RA. No focal consolidation, pleural fluid, or pneumothorax appare nt. IMPRESSION: Cardiomegaly without evidence for an acute cardiopulmonary process. POS: [facility]
[2018-01-16 08:29] LABS: Vancomycin, Trough 11.9 ug/mL
[2018-01-16 08:30] LABS: Anion Gap 15 mmol/L (10-20); BUN (Urea Nitrogen) 38 mg/dL (8.4-25.7); Calc. Creatinine Clearance 117 mL/min (70-130); Calcium 9.9 mg/dL (7.8-10.44); Carbon Dioxide 32 mmol/L (23-31); Chloride 90 mmol/L (98-107); Estimated GFR-MDRD 58; Glucose 141 mg/dL (80-115); Potassium 3.5 mmol/L (3.5-5.1); Sodium 133 mmol/L (136-145)
[2018-01-16] MEDS: Escitalopram Oxalate 10 mg Tablet PO SCH (08:55)
[2018-01-16] MEDS: Carvedilol 3.125 MG TAB PO SCH (08:55)
[2018-01-16] MEDS: Metolazone 5 MG TAB PO SCH (08:55)
[2018-01-16] MEDS: Potassium Chloride 20 MEQ TAB PO SCH (08:56)
[2018-01-16] MEDS: Azithromycin 250 MG TAB PO SCH (08:56)
[2018-01-16] MEDS: Furosemide 40 MG/4 ML VIAL SLOW IVP SCH (08:56)
[2018-01-16] MEDS: Clopidogrel Bisulfate 75 MG TAB PO SCH (08:57)
[2018-01-16] MEDS: Enoxaparin Sodium 40 MG/0.4 ML SYRINGE SC SCH (08:57)
[2018-01-16 09:07] VITALS: TEMP 97.7
--- NOTE | 2018-01-16 10:03 | PDOC.FM ---
- Subjective Subjective: This morning the patient denies SOB or cough. He has been off oxygen all night and states he slept well. - Objective Vital Signs & Weight: Vital Signs (12 hours) Temp Pulse Resp BP BP Pulse Ox 01/16/18 09:00 97.7 F 64 18 138/84 92 L 01/16/18 07:26 97.6 F 56 L 20 01/16/18 05:38 94 L 01/16/18 04:00 97.6 F 56 L 20 141/71 H 93 L Weight Admit Weight 155.582 kg Weight 146.51 kg I&O: 01/15/18 01/16/18 01/17/18 06:59 06:59 06:59 Intake Total 1380 1230 Output Total 4175 3100 Balance -6988 -8304 Result Diagrams: 01/14/18 06:55 01/16/18 07:58 <David Zacarias - Last Filed: 01/16/18 11:18> - Objective Vital Signs & Weight: Vital Signs (12 hours) Temp Pulse Resp BP Pulse Ox 01/16/18 11:40 64 18 121/64 01/16/18 09:00 97.7 F 64 18 138/84 92 L 01/16/18 07:26 97.7 F 64 20 92 L Weight Admit Weight 155.582 kg Weight 146.51 kg I&O: 01/15/18 01/16/18 01/17/18 06:59 06:59 06:59 Intake Total 1380 1230 480 Output Total 4175 3100 1000 Duable Chinese -9980 -0616 -520 Result Diagrams: 01/14/18 06:55 01/16/18 07:58 <Wood Rudd - Last Filed: 01/16/18 18:47> Phys Exam - Physical Examination Constitutional: NAD HEENT: PERRLA, moist MMs Neck: no nodes, full ROM Respiratory: no wheezing, clear to auscultation bilateral Cardiovascular: RRR, no significant murmur, no rub Gastrointestinal: soft, non-tender, no distention, positive bowel sounds morbidly obese Musculoskeletal: pulses present +3 pitting edema to R mid-calf, +1 to L ankle Neurological: non-focal, moves all 4 limbs Psychiatric: normal affect, A&O x 3 Skin: cap refill <2 seconds Deviation from normal: erythema to R leg has decreased, no warmth to touch <David Zacarias - Last Filed: 01/16/18 11:18> Dx/Plan (1) Acute respiratory failure with hypoxia Code(s): J96.01 - ACUTE RESPIRATORY FAILURE WITH HYPOXIA Status: Acute (2) CAP (community acquired pneumonia) Code(s): J18.9 - PNEUMONIA, UNSPECIFIED ORGANISM Status: Acute (3) Elevated troponin Code(s): R74.8 - ABNORMAL LEVELS OF OTHER SERUM ENZYMES Status: Acute (4) Hyperglycemia Code(s): R73.9 - HYPERGLYCEMIA, UNSPECIFIED Status: Acute (5) CHF (congestive heart failure) Code(s): I50.9 - HEART FAILURE, UNSPECIFIED Status: Chronic (6) S/P CABG (coronary artery bypass graft) Code(s): Z95.1 - PRESENCE OF AORTOCORONARY BYPASS GRAFT Status: Chronic - Plan Plan: # Acute Hypoxic Respiratory Failure - RA overnight - Keep sats above 92% -exercise tolerance is improved per patient - Fadia SAPPN - walking program # CHF - Restart his home regimen - home oral 80mg lasix, no increase to dose because patient was not taking it before coming in - -1800 mls overnight - Strict I & Os - BNP 108 - echo shows EF 50% # CAP vs Pneumonitis - CXR shows hazy new infiltrate in medial R lung base - 2V CXR showed RLL opacity - Repeat CXR shows no acute cardiopulmonary process - home with azithromycin # PAD - previous L femoral bypass - known R femoral occlusion from groin to knee per Cardiology - Doppler US negative for DVT on R, d-dimer 0.44 - will f/u with Dr. Webber # Cellulitus vs Stasis Dermatitis - +3 pitting on the right - redness decreased to level of ankle - home with clindamycin - started Vancomycin 01/14 - blood cultures # s/p CABG - Continue home medications # Elevated Troponins - 0.039 -> 0.062-> 0.062 -> 0.052 # Hyperglycemia - A1C 6.6 # Depression - start lexapro 10mg - f/u with PCP, refer for psychotherapy code: full Disposition: discharge to cardiac rehab today <Davdi Zacarias - Last Filed: 01/16/18 11:18> Attending Addendum - Attending Addendum Date/Time: 01/16/18 3101 I personally evaluated the patient and discussed the management with Dr. Zacarias I agree with the History, Examination, Assessment and Plan documented above with any addition or exceptions noted below. <Wood Rudd - Last Filed: 01/16/18 18:47>
[2018-01-16 11:45] VITALS: BP 121/64
--- NOTE | 2018-01-17 00:49 | DIS-2 ---
DATE OF ADMISSION: 01/12/2018 DATE OF DISCHARGE: 01/16/2018 RESIDENT: Dr. David Zacarias. ADMITTING ATTENDING: Dr. Idalmis Vidal. DISCHARGE ATTENDING: Dr. Wood Rudd. CONSULTATIONS: Cardiology, Dr. Mayorga. PROCEDURES: Doppler ultrasound right leg. PRIMARY DIAGNOSES: Community-acquired pneumonia, congestive heart failure exacerbation. SECONDARY DIAGNOSES: Acute hypoxic respiratory failure, peripheral artery disease, cellulitis, histo ry of coronary artery bypass graft, demand ischemia, hyperglycemia, and depression. DISCHARGE MEDICATIONS: Azithromycin 500 mg daily, Lexapro 10 mg daily, metolazone 5 mg daily, Bactri m 1 tablet twice daily, aspirin 81 mg, atorvastatin 40 mg, potassium 20 mEq daily, Lasix 40 mg daily, carvedilol 6.25 mg b.i.d., spironolactone 25 mg daily, and Plavix 75 mg daily. DISCONTINUED MEDICATIONS: None. HISTORY OF PRESENT ILLNESS AND HOSPITAL COURSE: A 67-year-old male presented to the ED with shortnes s of breath which he said was going on for one month or so, but was getting progressively worse over the last 3 or 4 days. He states he is short of breath with walking, but has gotten worse to the poin t that he cannot walk around the room. He states he had a fall recently because of the shortness of breath and weakness. He states he has longstanding peripheral artery disease for which he sees Dr. Jorge aguila. He denied chest pain, visual changes or weakness at time of admission. He states he was a ble to lay flat in bed. He states that he was not compliant with all of his medications and he had s kipped them for about 2 weeks. The patient was found to be in acute hypoxic respiratory failure requiring about 3 liters of oxygen w hen he was admitted. He was started on antibiotics for presumed pneumonia. He was also diuresed ext ensively throughout the course of the stay. He was seen and evaluated by Dr. Mayorga, who stated t hat there is no indication for further work on his right leg at this time, but his shortness of breat h is likely secondary to congestive heart failure exacerbation. The patient did develop a cellulitis on the right leg, which was treated effectively with antibiotics during the stay. His swelling was decreased during the course of the stay. Weights were unreliable during his stay, but he was diurese d about 7 liters during the time in the hospital. Attempted to get outpatient or inpatient rehabilit ation setup for the patient, but his insurance denied it. Patient elected for outpatient cardiac melodie ab therapy and says he will follow up with this. When he came in, the patient was very depressed sta ting that he was ready for it at the end. The patient was started on Lexapro and recommended to foll ow up outpatient with psychotherapy. DISPOSITION: Stable, guarded long-term prognosis. DISCHARGE INSTRUCTIONS: 1. Location: Home. 2. Activity: As tolerated. 3. Diet: Heart healthy. 4. Followup: [facility] in [address] Mayorga, 1-2 weeks. 5. Followup Appointment: Please set up the patient with psychotherapy for his depression. Please e valuate his fluid status. Please assure he is following up with cardiac rehab.
--- NOTE | 2018-01-17 08:58 | PQF ---
DATE: 01-15-18 ATTN: DR. CYNDI LONG/ DR. CANDIDO GRAJEDA Please exercise your independent, professional judgment in responding to the clarification form. Clinical indicators are provided on the bottom of this form for your review Please check appropriate box(s): BMI > 40 with associated diagnosis of: (check one) [ ] Morbid (Severe) Obesity [ ] Due to excess calories [ ] Overweight [ ] Obesity [ ] Other diagnosis [ ] Unable to determine In addition, please specify: Present on Admission (POA): [ ] Yes [ ] No [ ] Unable to Determine For continuity of documentation, please document condition throughout progress notes and discharge summary. Thank You. BMI < 19 Under weight 19 - 24.9 Healthy 25.0 - 29.9 Slightly Overweight 30.0 - 34.9 Obese 35.0 - 39.9 Severely Obese 40.0 and Over Morbidly Obese CLINICAL INDICATORS - SIGNS / SYMPTOMS / LABS BMI of: 49.[address] RODRÍGUEZ 01-15-18: MR. PRUITT CONTINUES TO INCREASE IN WEIGHT. IN MID 2015, HE WEIGHED 267 AND SLOWLY INCREASED INTO THE LOWER 300. IN , HE WAS 310 AND WAS SEEN AND EVALUATED IN THE OFFICE 3 WKS AGO AND WAS UP TO 336. OFFSET PRESS OPERATOR HELPER CONSULT 01-14-18: Patient has a very good appetite, but admits to "eating foods he knows he shouldn't" for the last month. He has been gaining weight, which he knows is fluid, UBW is 315 lbs. PT ASSESSMENT 01-13-18: Pt admitted /c SOB. Pt's admission complicated by continued SOB and R LE swelling. Pt will benefit from skilled PT services to improve endurance, functional mobility and gait. RISK FACTORS: H&P: PAD, CHF, [place], CABG X3, SKIN GRAFT A CHILD TREATMENTS: OFFSET PRESS OPERATOR HELPER CONSULT 01-14-18: 1. Recommend a Heart Healthy/ Consistent Carb (2000 shannan) diet 2. RD to add SF Mighty Shakes BID to best meet estimated needs (This form is maintained as a part of the permanent medical record) 2014 [employer]. All Rights Reserved [email or web address] [email or web address] Office: [phone] [facility]
--- NOTE | 2018-01-23 08:25 | PQF ---
DATE: 01-15-18 ATTN: DR. CYNDI LONG Please exercise your independent, professional judgment in responding to the clarification form. Clinical indicators are provided on the bottom of this form for your review Please check appropriate box(s): BMI > 40 with associated diagnosis of: (check one) [ ] Morbid (Severe) Obesity [ ] Due to excess calories [ ] Overweight [ ] Obesity [ ] Other diagnosis [ ] Unable to determine In addition, please specify: Present on Admission (POA): [ ] Yes [ ] No [ ] Unable to Determine For continuity of documentation, please document condition throughout progress notes and discharge summary. Thank You. BMI < 19 Under weight 19 - 24.9 Healthy 25.0 - 29.9 Slightly Overweight 30.0 - 34.9 Obese 35.0 - 39.9 Severely Obese 40.0 and Over Morbidly Obese CLINICAL INDICATORS - SIGNS / SYMPTOMS / LABS BMI of: 49.[address] RODRÍGUEZ 01-15-18: MR. PRUITT CONTINUES TO INCREASE IN WEIGHT. IN MID 2015, HE WEIGHED 267 AND SLOWLY INCREASED INTO THE LOWER 300. IN , HE WAS 310 AND WAS SEEN AND EVALUATED IN THE OFFICE 3 WKS AGO AND WAS UP TO 336. PLATFORM INSPECTOR CONSULT 01-14-18: Patient has a very good appetite, but admits to "eating foods he knows he shouldn't" for the last month. He has been gaining weight, which he knows is fluid, UBW is 315 lbs. PT ASSESSMENT 01-13-18: Pt admitted /c SOB. Pt's admission complicated by continued SOB and R LE swelling. Pt will benefit from skilled PT services to improve endurance, functional mobility and gait. RISK FACTORS: H&P: PAD, CHF, [place], CABG X3, SKIN GRAFT A CHILD TREATMENTS: PLATFORM INSPECTOR CONSULT 01-14-18: 1. Recommend a Heart Healthy/ Consistent Carb (2000 shannan) diet 2. RD to add SF Mighty Shakes BID to best meet estimated needs (This form is maintained as a part of the permanent medical record) 2014 [employer]. All Rights Reserved [email or web address] [email or web address] Office: [phone] [facility]
== END 2018-01-16 13:24 | disposition home or self-care (01) | DRG 291 ==
LOC: ERS 19:12 → 2NO 23:00
PROVIDERS: ADMIT Family Medicine; ATTEND Family Medicine
DX: I50.23 Acute on chronic systolic (congestive) heart failure (principal); J96.01 Acute respiratory failure with hypoxia; J18.9 Pneumonia, unspecified organism; E66.01 Morbid (severe) obesity due to excess calories; L03.115 Cellulitis of right lower limb; Z68.42 Body mass index [BMI] 45.0-49.9, adult; I24.8 Other forms of acute ischemic heart disease; I50.9 Heart failure, unspecified; R74.8 Abnormal levels of other serum enzymes; R73.9 Hyperglycemia, unspecified; Z95.1 Presence of aortocoronary bypass graft; F32.9 Major depressive disorder, single episode, unspecified; I25.2 Old myocardial infarction; Z95.0 Presence of cardiac pacemaker; Z87.891 Personal history of nicotine dependence; I87.2 Venous insufficiency (chronic) (peripheral); Z91.19 Patient's noncompliance with other medical treatment and regimen; I25.10 Atherosclerotic heart disease of native coronary artery without angina pectoris; I25.5 Ischemic cardiomyopathy; I70.201 Unspecified atherosclerosis of native arteries of extremities, right leg
CPT/HCPCS: 36415; 71045; 71046; 80048; 80053; 80202; 82553; 83036; 83880; 84484; 85025; 85027; 85379; 85652; 86140; 87040; 93005; 93306; 93798; 94640; 94760; 96365; A4216; G8978-GP-CN; G8979-GP-CJ; G8987-GO-CK; G8988-GO-CI; J0456; J0696; J1650; J1940; J3370; J7050

== ENCOUNTER 2018-07-17 14:39 | Emergency (ER) | payer MEDICARE, OTHER ==
--- NOTE | 2018-07-17 17:50 | ULT ---
BILATERAL LOWER EXTREMITY VENOUS DOPPLER ULTRASOUND EVALUATION: 07/17/18 HISTORY: Bilateral lower extremity pain. Multiple longitudinal and transverse images of the right and left lower extremity venous systems are obtained using a multihertz linear array transducer. Real time, color flow and spectral waveform dopp ler analysis demonstrates no evidence of acute or old clots seen in the right or left common femoral vein, superficial femoral vein, femoral profunda, popliteal veins, posterior tibial veins, post trifu rcation veins and right and left greater saphenous veins. IMPRESSION: No evidence of right or left lower extremity deep venous thrombosis. POS: [facility]
== END 2018-07-17 16:25 | disposition home or self-care (01) ==
LOC: ERS 14:39
DX: M79.662 Pain in left lower leg (principal); I50.9 Heart failure, unspecified; I25.2 Old myocardial infarction; Z87.891 Personal history of nicotine dependence; Z79.899 Other long term (current) drug therapy
CPT/HCPCS: 93970

== ENCOUNTER 2019-02-21 19:30 | Outpatient (CLI) | payer MEDICARE | END 2019-02-21 19:31 | disposition home or self-care (01) | LOC: SLEEPLAB 19:30 | PROVIDERS: ATTEND Student in an Organized Health Care Education/Training Program | DX: G47.33 Obstructive sleep apnea (adult) (pediatric) (principal); E66.9 Obesity, unspecified; I11.0 Hypertensive heart disease with heart failure; I50.9 Heart failure, unspecified | CPT/HCPCS: 95811 ==

== ENCOUNTER 2019-03-03 12:34 | Emergency (ER) | payer MEDICARE ==
--- NOTE | 2019-03-03 13:31 | RAD ---
XR Chest 1 View Portable History: Dyspnea Comparison: Radiograph January 16, 2018 Findings: Heart size is enlarged. Moderate edema. Small effusions. No pneumothorax. Fractures of the median sternotomy wires. Cardiac device is similar. Impression: Congestive heart failure changes with cardiomegaly, moderate edema, and small effusions.
[2019-03-03 13:48] LABS: #Eosinphils 0.1 thou/uL (0.0-0.7); #Lymphocytes 1.7 thou/uL (1.20-3.40); #Monocytes 0.5 thou/uL (0.11-0.59); %Basophils 0.2 % (0.0-1.0); %Eosinophils 2.2 % (0.0-10.0); %Lymphocytes 32.3 % (21.0-51.0); %Monocytes 9.8 % (0.0-10.0); %Neutrophils 55.5 % (42.0-75.0); Hemoglobin 14.1 g/dL (14.0-18.0); Mean Corpuscular Hemoglobin 31.3 pg (27.0-31.0); Mean Corpuscular Volume 94.9 fL (78.0-98.0); Mean Platelet Volume 8.3 fL (7.4-10.4); Platelet Count 139 thou/uL (130-400); RBC Distribution Width 12.8 % (11.5-14.5); Red Blood Cell (RBC) Count 4.51 mill/uL (4.70-6.10); White Blood Cell (WBC) Count 5.4 thou/uL (4.8-10.8)
[2019-03-03] MEDS ORDERED: methylPREDNISolone Sod Succ/PF 125 MG/2 ML VIAL ONE (14:25)
[2019-03-03] MEDS ORDERED: Furosemide 40 MG/4 ML VIAL ONE (14:25)
[2019-03-03 15:06] LABS: ALT (SGPT) 21 U/L (8-55); AST (SGOT) 26 U/L (5-34); Albumin 3.9 g/dL (3.4-4.8); Alkaline Phosphatase 80 U/L (40-150); Anion Gap 16 mmol/L (10-20); BUN (Urea Nitrogen) 14 mg/dL (8.4-25.7); Bilirubin, Total 0.6 mg/dL (0.2-1.2); Calc. Creatinine Clearance 0 mL/min (70-130); Calcium 9.1 mg/dL (7.8-10.44); Carbon Dioxide 24 mmol/L (23-31); Chloride 101 mmol/L (98-107); Estimated GFR-MDRD 67; Globulin 3.8 g/dL (2.4-3.5); Glucose 123 mg/dL (83-110); Potassium 4.3 mmol/L (3.5-5.1); Protein, Total 7.7 g/dL (5.8-8.1); Sodium 137 mmol/L (136-145)
== END 2019-03-03 17:05 | disposition home or self-care (01) ==
LOC: ERS 12:34
DX: J44.1 Chronic obstructive pulmonary disease with (acute) exacerbation (principal); Z87.891 Personal history of nicotine dependence; I50.9 Heart failure, unspecified; Z79.899 Other long term (current) drug therapy
CPT/HCPCS: 36415; 71045; 80053; 83880; 84484; 85025; 93005; 94640; 96374; 96375; J1940; J2930; J7620

== ENCOUNTER 2019-09-23 07:18 | Inpatient (IN) | payer MEDICARE ==
[2019-09-23 08:14] LABS: #Basophils 0.1 thou/uL (0.0-0.2); #Eosinphils 0.1 thou/uL (0.0-0.7); #Lymphocytes 1.1 thou/uL (1.20-3.40); #Monocytes 0.8 thou/uL (0.11-0.59); #Neutrophils 3.6 thou/uL (1.40-6.50); %Eosinophils 1.6 % (0.0-10.0); %Monocytes 13.6 % (0.0-10.0); %Neutrophils 64.8 % (42.0-75.0); Hemoglobin 14.5 g/dL (14.0-18.0); Mean Corpuscular HGB CONC 32.9 g/dL (32.0-36.0); Mean Corpuscular Hemoglobin 32.1 pg (27.0-31.0); Mean Corpuscular Volume 97.6 fL (78.0-98.0); Mean Platelet Volume 7.9 fL (7.4-10.4); Platelet Count 149 thou/uL (130-400); RBC Distribution Width 13.1 % (11.5-14.5); Red Blood Cell (RBC) Count 4.52 mill/uL (4.70-6.10); White Blood Cell (WBC) Count 5.5 thou/uL (4.8-10.8)
[2019-09-23 08:34] LABS: ALT (SGPT) 18 U/L (8-55); AST (SGOT) 22 U/L (5-34); Alkaline Phosphatase 104 U/L (40-110); Anion Gap 12 mmol/L (10-20); BUN (Urea Nitrogen) 13 mg/dL (8.4-25.7); Bilirubin, Total 0.5 mg/dL (0.2-1.2); Calc. Creatinine Clearance 0 mL/min (70-130); Calcium 9.8 mg/dL (7.8-10.44); Carbon Dioxide 28 mmol/L (23-31); Chloride 104 mmol/L (98-107); Estimated GFR-MDRD 80; Globulin 3.7 g/dL (2.4-3.5); Glucose 137 mg/dL (83-110); Protein, Total 7.7 g/dL (5.8-8.1); Sodium 140 mmol/L (136-145)
--- NOTE | 2019-09-23 09:23 | CT ---
CT NECK SOFT TISSUES, WITH CONTRAST: CLINICAL INDICATION: Emergency exam. COMPARISON: CT chest 05/13/2019 is referenced. FINDINGS: Aerodigestive tract: There is generalized mucosal prominence of the aerodigestive tract which may be on the basis of edema/hyperplasia. Medial deviation of each vocal cord with associated apposition at the anterior/mid glottis. Mural prominence of the unopacified underdistended esophagus. Leftward d eviation of the esophagus and trachea. Parotid gland: Predominant fatty replacement. Submandibular glands: No intrinsic mass, or inflammation. Soft tissue mass: Large mass of the upper mediastinum, partially imaged, which has significantly incr eased in volume from prior CT April 2019. As this is incompletely imaged, size measurements are limited, although where visualized axial diameters measure 9.7 cm transverse by 9.1 cm AP. Mass encas es the imaged mediastinal vasculature, notably the visualized right subclavian artery. Lymph nodes: Upper mediastinal adenopathy, malignant in etiology is present adjacent the above descri bed mass. There are also scattered enlarged cervical chain lymph nodes bilaterally which may also relate to metastatic disease, in light of the concomitant findings. Thyroid gland: No discrete thyroid lesion, within limitations. 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 Transcribed Date/Time: 09/23/2019 9:43 AM
[2019-09-23] MEDS ORDERED: Iopamidol-370 76% 500 ML 1 ML ONE (09:42)
[2019-09-23] MEDS ORDERED: Dexamethasone 10 MG/ML VIAL ONE (10:17)
--- NOTE | 2019-09-23 10:46 | PDOC.FPRHP ---
- History of Present Illness Chief Complaint: hoarse voice History of Present Illness: 69 y/o male with a pmhx of CAd S/P X3 vessel CABG, HFpEF, HTN, HLD, JEFFERY, here today for X3 days of worsening voice hoarseness. Pt states that he has been having trouble swallowing solid foods over the last X3 days. c/o SOB for the past 3 years since [place], but worse over the past 3 days. Denies dysphagia with liquids. Pt unaware of mass in mediastinum and never been diagnosed with any type of malignancy. Pt denies CP, MONTEIRO, neck pain, swollen nodes. This is the first time he has ever had these symptoms before. ED course: CT neck: progressive malignancy centered @ upper mediastinum with associated metastatic LAD. given decadron 10 mg IVP and duonebs in ED. Put on NC O2. - Allergies/Adverse Reactions Allergies Allergy/AdvReac Type Severity Reaction Status Date / Time No Known Allergies Allergy Verified 01/13/18 00:37 - Home Medications Medication Instructions Recorded Confirmed Type Potassium Chloride [K-Dur] 20 meq PO DAILY #0 tab 12/17/15 05/13/19 Rx Carvedilol [Coreg] 6.25 mg PO BID 01/12/18 05/13/19 History Spironolactone 25 mg PO DAILY 01/12/18 05/13/19 History Tiotropium [Spiriva Handihaler] 1 puff INH PRN PRN 05/13/19 05/13/19 History Ipratropium/Albuterol Sulfate 3 ml NEB Q4H PRN neb 05/16/19 Rx [DuoNeb] Melatonin 3 mg PO HSPRN PRN tab 05/18/19 Rx Torsemide [Demadex] 20 mg PO BID@0900,1400 #60 tab 05/19/19 Rx Erythromycin Base 0.5% Oint 1 gm EA EYE BID #1 tube 05/22/19 Rx [Erythromycin Base 0.5% Ophth Oint] - History PMHx: CAD S/P X3 vessel CABG, HFpEF EF50%, HTN, HLD, JEFFERY, PSHx: Single lead AIDC, CABG X3 vessels 3 years ago. FHx: Father: brain CA, Mother: Bone Ca Social: Quit smoking cigarettes 4 years ago, 50 pack year. Quit drinking beer heavily X20 years ago, now only drinks a few times a year about 3 beers. Denies drug use. - Review of Systems General: denies: fever/chills, weight/appetite/sleep changes Respiratory: reports: cough, shortness of breath, exercise intolerance Cardiovascular: reports: edema. denies: chest pain, palpitation Gastrointestinal: denies: nausea, vomiting, diarrhea, abdominal pain Skin: reports: rashes (LE's) Musculoskeletal: reports: swelling (LE's) Neurological: denies: syncope, seizure - Vital signs BP: 156/85 HR: 109 RR: 16 Tmax: 97.7 Pox: 95% on 4L NC Wt: 145 kg - Physical Exam Constitutional: NAD, awake, alert and oriented -Constitutional: obese HEENT: normocephalic and atraumatic, PERRLA, EOMI, no scleral icterus, grossly normal vision, grossly normal hearing, MMM -HEENT: skin tags around eyelids. Neck: supple -Neck: large neck circumference. no specific palpable mass, but very thick and dense tissue around neck anteriorly. No visual tracheal deviation. -Heart: tachycardic. Distant heart sounds. Lungs: CTAB, no respiratory distress, good air movement Abdomen: soft, non-tender, bowel sounds present -Abdomen: obese abdomen. Musculoskeletal: normal structure, ROM grossly normal Neurological: no focal deficit, normal sensation -Skin: chronic venous stasis dermatitis, waxy and macular hyperpigmented skin of BLE' s. R>L. Heme/Lymphatic: no unusual bruising or bleeding, no purpura Psychiatric: normal mood and affect, good judgment and insight, intact recent and remote memory FMR H&P: Results - Labs Result Diagrams: 09/23/19 08:02 09/23/19 08:02 Lab results: WBC 5.5 thou/uL (4.8-10.8) 09/23/19 08:02 Hgb 14.5 g/dL (14.0-18.0) 09/23/19 08:02 Hct 44.1 % (42.0-52.0) 09/23/19 08:02 MCV 97.6 fL (78.0-98.0) 09/23/19 08:02 Plt Count 149 thou/uL (130-400) 09/23/19 08:02 Neutrophils % 64.8 % (42.0-75.0) 09/23/19 08:02 Sodium 140 mmol/L (136-145) 09/23/19 08:02 Potassium 4.0 mmol/L (3.5-5.1) 09/23/19 08:02 Chloride 104 mmol/L (98-107) 09/23/19 08:02 Carbon Dioxide 28 mmol/L (23-31) 09/23/19 08:02 BUN 13 mg/dL (8.4-25.7) 09/23/19 08:02 Creatinine 0.93 mg/dL (0.7-1.3) 09/23/19 08:02 Glucose 137 mg/dL (83-110) H 09/23/19 08:02 Calcium 9.8 mg/dL (7.8-10.44) 09/23/19 08:02 Total Bilirubin 0.5 mg/dL (0.2-1.2) 09/23/19 08:02 AST 22 U/L (5-34) 09/23/19 08:02 ALT 18 U/L (8-55) 09/23/19 08:02 Alkaline Phosphatase 104 U/L (40-110) 09/23/19 08:02 Serum Total Protein 7.7 g/dL (5.8-8.1) 09/23/19 08:02 Albumin 4.0 g/dL (3.4-4.8) 09/23/19 08:02 - Radiology Interpretation Other Status: image reviewed by me, report reviewed by me (CT neck and mediastinum: upper mediastinal mass compressing trachea.) FMR H&P: A/P - Problem List (1) Mass of mediastinum Current Visit: Yes Status: Acute (2) Mediastinal lymphadenopathy Current Visit: Yes Status: Acute Code(s): R59.0 - LOCALIZED ENLARGED LYMPH NODES (3) CHF (congestive heart failure) Current Visit: Yes Status: Chronic Code(s): I50.9 - HEART FAILURE, UNSPECIFIED (4) Coronary artery disease Current Visit: Yes Status: Chronic Code(s): I25.10 - ATHSCL HEART DISEASE OF [place] CORONARY ARTERY W/O ANG PCTRS (5) Hyperlipidemia Current Visit: Yes Status: Chronic Code(s): E78.5 - HYPERLIPIDEMIA, UNSPECIFIED (6) Hypertension Current Visit: Yes Status: Chronic Code(s): I10 - ESSENTIAL (PRIMARY) HYPERTENSION (7) S/P CABG (coronary artery bypass graft) Current Visit: Yes Status: Chronic Code(s): Z95.1 - PRESENCE OF AORTOCORONARY BYPASS GRAFT - Plan 69 y/o male with recent onset hoarse voice, admitted for further evaluation and treatment of Mediastinal mass causing compression of trachea and esophagus. 1. 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 - likely etiology head and neck cancer - Compressing vocal cords and causing hoarseness. - Dr. Garcia, ENT consulted and plans to scope 09/23. Will perform biopsy potentially - Continue decadron - PRN NC O2, keep O2 sat above 92% 2. Hx of CAD, S/P CABG X3. - 3 years ago. - continnure home medications 3. HFpEF - continue home medications of spironolactone, carvedilol, toroseminde, and KCl. - stable, not clinically in exacerbation. 4. HTN - continue home medications 5. JEFFERY - continue home CPAP QHS. 6. PAD - continue home medications 7. HLD - not currently on statin therapy. code status: full code Diet: HH, 2000 mL day fluid restriction DVT ppx: SCD's, activity ab jayson, encourage ambulation. Dispo: stable, no respiratory distress. Admit to [facility] further workup and treatment of trach/esophageal deviation from mass. FMR H&P: Upper Level - Pertinent history 69 yo M here with complaint of horse voice for the past 3 days. He denies associated cough, SOB, or pain. He has noticed an increase with trouble swallowing foods over the past few months. In Apr he was admitted for a CHF exacerbation where a CTA chest noted a R sided mediastinal mass. A repeat CT in 1 mo was recommended by Pulm, however that did not happen. CT neck today notes a significantly enlarged mass with lymphadenopathy compared to previous CT. Pt was given steroids in the ER and ENT was contacted who plans to scope and biopsy today. PMHx COPD HFrEF JEFFERY MDD CAD PAD HTN HLD PSHx: balloon stent to left leg for PAD 07/2017, CABG X4 FHx: HTN Social: formal tobacco user, quit about 6 years ago, denies alcohol or drug use - Pertinent findings See information technology internship note for full ROS, PE, vitals, and labs ROS General denies fever or chills. HEENT complains of horse voice CV Denies CP, diaphoresis, or peripheral edema Resp Denies cough or SOB GI Complains of dysphagia. Denies n/v/d/c or abdominal pain denies increased frequency or dysuria Neuro denies numbness or weakness. PE General A&O x4, NAD HEENT NCAT, no palpable mass, no tracheal deviation CV RRR Resp CTA, no respiratory distress Abd no distension Extremities No edema Skin Venous stasis changes Neuro no focal deficits, CN II-XII intact - Plan Date/Time: 09/23/19 1046 I, Lv Garcia DO, have evaluated this patient and agree with findings/plan as outlined by information technology internship resident. Pertinent changes/additions are listed here. Mediastinal mass -Concern for malignancy. No impending respiratory compromise at this time -ENT plans to scope and biopsy today -Continue steroids at this time. -Admit to obs See information technology internship portion for management of chronic illness. PPx SCD Diet HH Code Full Dispo: pt is currently in good condition. Would expect biopsy today and short period of observation today. Likely dc in am pending procedure results
[2019-09-23 13:27] VITALS: BMI 44.6
[2019-09-23] MEDS ORDERED: Melatonin 3 MG TAB PO PRN (17:12)
[2019-09-23] MEDS ORDERED: Torsemide 20 MG TAB PO SCH ×2 (18:00→19:30)
[2019-09-24 04:09] LABS: Hemoglobin 13.8 g/dL (14.0-18.0); Platelet Count 179 thou/uL (130-400)
[2019-09-24 04:17] LABS: INR-International Normal Ratio 1.1; Prothrombin Time 13.8 SEC (12.0-14.7)
--- NOTE | 2019-09-24 06:22 | PDOC.FM ---
- Subjective Subjective: Pt states he did well breathing overnight with his home CPAP machine. Denies CP, or SOB this AM. going for barium swallow test and CT guided biopsy ordered for mediastinal mass. - Objective MAR Reviewed: Yes Vital Signs & Weight: Vital Signs (12 hours) Temp Pulse Resp BP Pulse Ox 09/24/19 03:30 97.6 F 73 16 134/60 93 L 09/23/19 23:00 97.8 F 81 16 118/56 L 92 L 09/23/19 19:00 97.6 F 88 20 144/60 H 93 L Weight Weight 145.15 kg I&O: 09/22/19 09/23/19 09/24/19 06:59 06:59 06:59 Intake Total 240 Output Total 750 Balance -510 Result Diagrams: 09/24/19 03:50 09/23/19 08:02 Phys Exam - Physical Examination Constitutional: NAD HEENT: moist MMs, sclera anicteric large neck circumference. No visual or palpable deviation of trachea. Respiratory: no wheezing, no rhonchi, clear to auscultation bilateral Cardiovascular: RRR, no rub distant heart sounds. Gastrointestinal: soft, non-tender, no distention obese abd. Musculoskeletal: edema present (RLE> LLE chronic. ) Neurological: non-focal, moves all 4 limbs Psychiatric: normal affect, A&O x 3 Dx/Plan (1) Mass of mediastinum Status: Acute (2) Mediastinal lymphadenopathy Code(s): R59.0 - LOCALIZED ENLARGED LYMPH NODES Status: Acute (3) CHF (congestive heart failure) Code(s): I50.9 - HEART FAILURE, UNSPECIFIED Status: Chronic (4) Coronary artery disease Code(s): I25.10 - ATHSCL HEART DISEASE OF [place] CORONARY ARTERY W/O ANG PCTRS Status: Chronic (5) Hyperlipidemia Code(s): E78.5 - HYPERLIPIDEMIA, UNSPECIFIED Status: Chronic (6) Hypertension Code(s): I10 - ESSENTIAL (PRIMARY) HYPERTENSION Status: Chronic (7) S/P CABG (coronary artery bypass graft) Code(s): Z95.1 - PRESENCE OF AORTOCORONARY BYPASS GRAFT Status: Chronic - Plan Plan: 69 y/o male with recent onset hoarse voice, admitted for further evaluation and treatment of Mediastinal mass causing compression of trachea and esophagus. 1. 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 - likely etiology head and neck cancer - Compressing vocal cords and causing hoarseness. - Dr. Garcia, ENT consulted and plans to scope 09/23. Pt had mucus and inflammation around vocal cords causing laryngitis. - ordered CT guided biopsy of mediastinal mass - ordered barium swallow study to evaluate safelty of eating with compression of esophagus form mass. - Continue Prednisone 40 mg for 5 days. - PRN NC O2, keep O2 sat above 92% - Ordered CT guided biopsy. - Ordered barium swallow study, as pt's swallow function is compromised per speech evaluation. 2. Hx of CAD, S/P CABG X3. - 3 years ago. - continnure home medications 3. HFpEF - continue home medications of spironolactone, carvedilol, toroseminde, and KCl. - stable, not clinically in exacerbation. 4. HTN - continue home medications 5. JEFFERY - continue home CPAP QHS. 6. PAD - continue home medications 7. HLD - not currently on statin therapy. code status: full code Diet: HH, 2000 mL day fluid restriction. Mech soft, with ground meats, extra gravy. DVT ppx: SCD's, activity ab jayson, encourage ambulation. Dispo: stable, no respiratory distress. Admit to [facility] further workup and treatment of trach/esophageal deviation from mass.
[2019-09-24] MEDS: predniSONE 20 MG TAB PO SCH (08:16)
[2019-09-24] MEDS: Potassium Chloride 20 MEQ TAB PO SCH (08:17)
[2019-09-24] MEDS: Carvedilol 6.25 MG TAB PO SCH (08:17)
[2019-09-24] MEDS: Torsemide 20 MG TAB PO SCH ×2 (08:18→14:45)
[2019-09-24] MEDS: Spironolactone 25 MG TAB PO SCH (08:18)
[2019-09-24] MEDS ORDERED: Iopamidol-370 76% 500 ML 1 ML ONE (09:56)
--- NOTE | 2019-09-24 11:00 | RAD ---
EXAM: Modified barium swallow with speech therapist HISTORY: Feeding difficulties and dysphasia FINDINGS/IMPRESSION: A modified barium swallow was performed by the speech therapist. A video was performed. Penetration w as seen with thin liquids and nectar thick liquids. No aspiration was seen. Please see dedicated speech therapy report for specific findings and recommendations.
--- NOTE | 2019-09-24 11:28 | RAD ---
EXAM: Esophagram HISTORY: Dysphagia. Upper mediastinal mass COMPARISON CT chest 09/24/2019 FINDINGS: A double contrast barium swallow/esophagram was performed. Evaluation for reflux is limited on this e xam as the patient cannot lie flat. Esophageal motility is normal. No mucosal lesions are seen in the esophagus. No extrinsic compression on the esophagus is seen. No hiatal hernia. A 13 mm barium tablet passed without difficulty into the stomach. IMPRESSION: Normal esophagram
--- NOTE | 2019-09-24 11:29 | HP ---
I have examined the patient. I have discussed the case with Dr. Mary Mendenhall, and agree with her assessment and plan. HISTORY OF PRESENT ILLNESS: Mr. Santoro is a 69-year-old male, who has past medical history of coronary artery disease with three-vessel CABG, heart failure with preserved ejection fraction, hypertension, and obstructive sleep apnea. He was hospitalized back in April and at that time, was found incidentally to have some mediastinal lymphadenopathy. Follow-ups with Pulmonology had been arranged, but these were not kept. He presented to the ER yesterday with chief complaints of chronic coarseness been going on for several days along with some increased respiratory distress. He was found on CT to have a what appeared to be a malignancy in the lower neck area that was encroaching on his airway. ENT has been consulted and he was admitted. PHYSICAL EXAMINATION: GENERAL: This morning, he is awake, alert, in no distress. VITAL SIGNS: Blood pressure is 150/80. His heart rate is 80, respirations are 16, he is afebrile. His pulse ox on 4 L is 95%. RESPIRATORY: He demonstrates no respiratory distress. EAR, NOSE, AND THROAT: No erythema or exudate. NECK: Supple. CARDIAC: Heart rhythm, regular. No gallop or murmur. LUNGS: Breath sounds are diminished, but clear without rales or wheezes. ABDOMEN: Flat and soft. NEUROLOGIC: No focal deficits. EXTREMITIES: Trace edema. LABORATORY DATA: CBC; white count is 5500, hemoglobin 14.5, hematocrit 44.1, MCV of 97.6. Chemistries; sodium 140, potassium 4.0, chloride 104, bicarb 28, BUN 13, creatinine 0.93, glucose 137. Liver enzymes are normal. A soft tissue neck CT done in the ER yesterday shows a large mass of the upper mediastinum which is greatly increased in volume since April of 2019. Also, some upper mediastinal adenopathy that appeared to be malignant in etiology and suspicious for lymphoma. ASSESSMENT: Mediastinal mass, possibly lymphoma. PLAN: We have consulted ENT. IR will attempt to do a biopsy today. We will proceed based on these readings. We will likely need some input from Pulmonology as well. Job ID: [id number]
[2019-09-24] MEDS ORDERED: Polyethylene Glycol 3350 17 GM Packet PO SCH (18:00)
[2019-09-24] MEDS ORDERED: Senokot 8.6 MG TAB PO PRN (18:54)
--- NOTE | 2019-09-25 06:14 | PDOC.FM ---
- Subjective Subjective: pt did well overnight. No complaints this am. denies cp, sob, cough. states voice is returning. - Objective MAR Reviewed: Yes Vital Signs & Weight: Vital Signs (12 hours) Temp Pulse Resp BP Pulse Ox 09/24/19 19:44 98.5 F 70 24 H 101/49 L 97 Weight Weight 145.15 kg I&O: 09/23/19 09/24/19 09/25/19 06:59 06:59 06:59 Intake Total 240 1200 Output Total 750 Balance -510 1200 Result Diagrams: 09/24/19 03:50 09/23/19 08:02 Phys Exam - Physical Examination Constitutional: NAD HEENT: moist MMs, sclera anicteric increaed girth of neck. Respiratory: clear to auscultation bilateral Cardiovascular: RRR, no rub Gastrointestinal: soft, non-tender Musculoskeletal: pulses present, edema present Neurological: non-focal, moves all 4 limbs Psychiatric: normal affect, A&O x 3 Skin: cap refill <2 seconds Dx/Plan (1) Mass of mediastinum Status: Acute (2) Mediastinal lymphadenopathy Code(s): R59.0 - LOCALIZED ENLARGED LYMPH NODES Status: Acute (3) CHF (congestive heart failure) Code(s): I50.9 - HEART FAILURE, UNSPECIFIED Status: Chronic (4) Coronary artery disease Code(s): I25.10 - ATHSCL HEART DISEASE OF [place] CORONARY ARTERY W/O ANG PCTRS Status: Chronic (5) Hyperlipidemia Code(s): E78.5 - HYPERLIPIDEMIA, UNSPECIFIED Status: Chronic (6) Hypertension Code(s): I10 - ESSENTIAL (PRIMARY) HYPERTENSION Status: Chronic (7) S/P CABG (coronary artery bypass graft) Code(s): Z95.1 - PRESENCE OF AORTOCORONARY BYPASS GRAFT Status: Chronic - Plan Plan: 69 y/o male with recent onset hoarse voice, admitted for further evaluation and treatment of Mediastinal mass causing compression of trachea and esophagus. 1. 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 - likely etiology head and neck cancer - Dr. Garcia, ENT consulted and plans to scope 09/23. Pt had mucus and inflammation around vocal cords causing laryngitis. - ordered CT guided biopsy of mediastinal mass - ordered barium swallow study to evaluate safelty of eating with compression of esophagus form mass. nml study. - Continue Prednisone 40 mg for 5 days. - PRN NC O2, keep O2 sat above 92% - Ordered CT guided biopsy. - CT Chest: mediastinal mass causing SVC compression. Evidence of mets to T9 with lytic lesions. B healing rib fx's - Consulting pulm, appreciate recs 2. Hx of CAD, S/P CABG X3. - 3 years ago. - continue home medications 3. HFpEF - continue home medications of spironolactone, carvedilol, toroseminde, and KCl. - stable, not clinically in exacerbation. 4. HTN - continue home medications 5. JEFFERY - continue home CPAP QHS. 6. PAD - continue home medications 7. HLD - not currently on statin therapy. code status: full code Diet: HH, 2000 mL day fluid restriction. Mech soft, with ground meats, extra gravy. DVT ppx: SCD's, activity ab jayson, encourage ambulation. Dispo: stable, no respiratory distress. Admit to med inpt for further workup and treatment of trach/esophageal deviation from mass.
--- NOTE | 2019-09-25 07:28 | CT ---
CT Chest W Con History: Mesial mass Comparison: CT chest 05/13/2019. CT neck prior day Findings: As seen on the CT neck prior day and comparing the CT chest 05/13/2019, the anterior mediast inal mass using the same plane of reference has increased in size, now measuring 9 cm in greatest AP dimension. There is high-grade narrowing of the superior vena cava and the right and left brachioc ephalic veins. There are enlarging prevascular lymph nodes measuring 2.3 cm in short axis. Conglomerate of subcarinal adenopathy measures 4.1 cm in AP dimension, increased from the April 2019 exam which had measured 3.5 cm. There is contrast within the upper abdomen. This is pericardial fluid. The mediastinal mass does abut the anterior esophagus and nearly surrounds the trachea without high-grade narrowing. There is abnormal lucency of the and lytic process of the T9 spinous process extending into the cornell a and pedicles. Healing right lateral eighth and ninth rib fractures. Healing posterior left fourth fifth and sixth rib fractures. Mild atelectasis within the lingula. Mild increased posterior extraple ural fat. No confluent airspace consolidation. Impression: 1. Interval size increase anterior superior mediastinal mass with mass effect upon the SVC as well as brachiocephalic veins. There is contrast within the veins of the chest indicating a component of SVC obstruction. 2. T9 spinous process as well as lamina and pedicle lytic process suggesting metastasis. 3. Healing bilateral rib fractures.
[2019-09-25] MEDS: predniSONE 20 MG TAB PO SCH (09:21)
[2019-09-25] MEDS: Potassium Chloride 20 MEQ TAB PO SCH ×3 (09:22→14:19)
[2019-09-25] MEDS: Torsemide 20 MG TAB PO SCH ×2 (09:28→14:19)
[2019-09-25] MEDS: Spironolactone 25 MG TAB PO SCH (09:28)
[2019-09-25] MEDS: Polyethylene Glycol 3350 17 GM Packet PO SCH (09:29)
[2019-09-25] MEDS: Carvedilol 6.25 MG TAB PO SCH ×2 (09:29→14:22)
--- NOTE | 2019-09-25 11:05 | PRG ---
DATE OF SERVICE: 09/25/2019 Mr. Santoro had his chest CT yesterday with the following findings: There was an interval size increase of an anterior superior mediastinal mass with mass effect upon the superior vena cava as well as brachiocephalic veins. There was contrast within the veins of the chest, indicating a component of SVC obstruction. The T9 spinous process also shows the possibility of a lytic lesion suggesting metastases. Given the complexity of this problem and given the fact that the patient was being seen by Pulmonology upon his last discharge in April of 2019, we will consult Pulmonology as well. We are still awaiting tissue biopsy and tissue diagnosis of this mediastinal mass which appears to be progressing rapidly. I am reluctant to discharge this patient as he was admitted initially with symptoms of airway obstruction. Until we have a definitive diagnosis and have at least initiated a treatment plan, I feel the best observe him here in the hospital. Job ID: [id number]
--- NOTE | 2019-09-26 05:58 | PDOC.FM ---
- Subjective Subjective: Pt states he is breathing well, denies CP or SOB. Pt to be seen by pulm for bronch and possble biopsy today. - Objective MAR Reviewed: Yes Vital Signs & Weight: Vital Signs (12 hours) Temp Pulse Resp BP Pulse Ox 09/25/19 20:00 93 L 09/25/19 19:34 98.2 F 72 20 119/73 93 L Weight Weight 145.15 kg I&O: 09/24/19 09/25/19 09/26/19 06:59 06:59 06:59 Intake Total 240 1200 520 Output Total 750 Balance -510 1200 520 Result Diagrams: 09/24/19 03:50 09/23/19 08:02 Phys Exam - Physical Examination Constitutional: NAD HEENT: moist MMs, sclera anicteric Respiratory: no wheezing, no rales, no rhonchi, clear to auscultation bilateral Cardiovascular: RRR, no rub Gastrointestinal: soft, non-tender, no distention Musculoskeletal: no edema, pulses present Neurological: non-focal, moves all 4 limbs Psychiatric: normal affect, A&O x 3 Skin: no rash, normal turgor, cap refill <2 seconds Dx/Plan (1) Mass of mediastinum Status: Acute (2) Mediastinal lymphadenopathy Code(s): R59.0 - LOCALIZED ENLARGED LYMPH NODES Status: Acute (3) CHF (congestive heart failure) Code(s): I50.9 - HEART FAILURE, UNSPECIFIED Status: Chronic (4) Coronary artery disease Code(s): I25.10 - ATHSCL HEART DISEASE OF [place] CORONARY ARTERY W/O ANG PCTRS Status: Chronic (5) Hyperlipidemia Code(s): E78.5 - HYPERLIPIDEMIA, UNSPECIFIED Status: Chronic (6) Hypertension Code(s): I10 - ESSENTIAL (PRIMARY) HYPERTENSION Status: Chronic (7) S/P CABG (coronary artery bypass graft) Code(s): Z95.1 - PRESENCE OF AORTOCORONARY BYPASS GRAFT Status: Chronic - Plan Plan: 69 y/o male with recent onset hoarse voice, admitted for further evaluation and treatment of Mediastinal mass causing compression of trachea and esophagus. 1. 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 - likely etiology head and neck cancer - Dr. Garcia, ENT consulted and plans to scope 09/23. Pt had mucus and inflammation around vocal cords causing laryngitis. - ordered CT guided biopsy of mediastinal mass - ordered barium swallow study to evaluate safety of eating with compression of esophagus form mass. nml study. - Continue Prednisone 40 mg for 5 days. - PRN NC O2, keep O2 sat above 92% - Ordered CT guided biopsy, was unable to reach a mass for biopsy. - CT Chest: mediastinal mass causing SVC compression. Evidence of mets to T9 with lytic lesions. B healing rib fx's - Consulting pulm, appreciate recs. planning for bronch and biopsy morning of 09/26/19. 2. Hx of CAD, S/P CABG X3. - 3 years ago. - continue home medications 3. HFpEF - continue home medications of spironolactone, carvedilol, toroseminde, and KCl. - stable, not clinically in exacerbation. 4. HTN - continue home medications 5. JEFFERY - continue home CPAP QHS. 6. PAD - continue home medications 7. HLD - not currently on statin therapy. code status: full code Diet: HH, 2000 mL day fluid restriction. Mech soft, with ground meats, extra gravy. DVT ppx: SCD's, activity ab jayson, encourage ambulation. Dispo: stable, no respiratory distress. Admit to med inpt for further workup and treatment of mediastinal mass mass.
[2019-09-26 07:34] VITALS: TEMP 97.6
[2019-09-26] MEDS: Potassium Chloride 20 MEQ TAB PO SCH (09:36)
[2019-09-26] MEDS: Torsemide 20 MG TAB PO SCH ×2 (09:36→14:00)
[2019-09-26] MEDS: Carvedilol 6.25 MG TAB PO SCH (09:37)
[2019-09-26] MEDS: Spironolactone 25 MG TAB PO SCH (09:37)
[2019-09-26] MEDS: predniSONE 20 MG TAB PO SCH (09:37)
[2019-09-26 09:38] VITALS: BP 113/77
[2019-09-26] MEDS: Polyethylene Glycol 3350 17 GM Packet PO SCH (09:38)
--- NOTE | 2019-09-26 11:18 | PRG ---
DATE OF SERVICE: 09/26/2019 IR was unable to do a CT-guided biopsy yesterday. We have consulted Dr. Whelan who saw the patient four months ago when he had his original findings of mediastinal adenopathy. We believe Dr. Whelan is planning to do a bronchoscopy with biopsy. There is still concern for his history of stridor and airway compression and I would like further delineation before we make any note to discharge the patient. Job ID: [id number]
--- NOTE | 2019-09-26 14:02 | PQF ---
KATERYNA PRUITT LESLIE *r [id number] CLINICAL DOCUMENTATION IMPROVEMENT CLARIFICATION FORM: ICD-10 Updated PLEASE DO AN ADDENDUM TO THE PROGRESS NOTE WITH ANY DOCUMENTATION UPDATES OR ADDITIONS AND CARRY THROUGH TO DC SUMMARY. THANK YOU. DATE: 09/26/19 ATTN: Dr. Mendenhall Please exercise your independent, professional judgment in responding to the clarification form. Clinical indicators are provided on the bottom of this form for your review Please check appropriate box(s): [ * ] Respiratory Insufficiency due to mediastinal mass around trachea causing deviation. In addition, please specify: Present on Admission (POA): [ * ] Yes For continuity of documentation, please document condition throughout progress notes and discharge summary. Thank You. CLINICAL INDICATORS - SIGNS / SYMPTOMS / LABS / RESULTS AND LOCATION IN MR 09/23 CT NECK: Progressive malignancy centered @ upper mediastinum with associated metastatic LAD Decreased oxygen saturation (<90% room air or < 95% on oxygen). Cyanosis/Hypoxia --> 09/23 O2 sat 100% on 4L NC --93% on 2L NC placed back on 4L per VS 09/23 RR 24 per VS RISK FACTORS / RESULTS AND LOCATION IN 09/23 ED(Sandoval): "pt reports on cpap at night x6 weeks" "HFpEF not in exacerbation; Mass of Medistinum" 09/23 H&P(Abdirashid) TREATMENTS / RESULTS AND LOCATION IN Oxygen--> 4L-2L NC oxygen 09/23 to 09/24/19 per orders Monitoring of oxygenation status 09/23 to date orders Respiratory treatments--> Duo nebs(albuterol/ipratropium) 3ml 09/23 per orders IV steroids--> 09/23 ED: IV decadron 10mg per orders Pulmonary Consult 1/2 orders Acute Respiratory Failure: ABG pH < 7.35 or > 7.45; Decreased oxygen saturation (<90% room air or < 95% on oxygen); PCO2 > 50 mm Hg; PO2 < 60 mm Hg; Labored or rapid respirations ARDS: Dx Criteria [[place] ARDS]: Respiratory symptoms within one week of a known clinical insult (e.g. shock, infection, surgery, trauma) Bilateral opacities in CXR/Chest CT not due to CHF or fluid (This form is maintained as a part of the permanent medical record) 2014 [employer]. All Rights Reserved Patria Manning RN, BSN, CCDS [email or web address] [phone] [facility] CENTERPat
--- NOTE | 2019-09-26 15:54 | CON ---
DATE OF CONSULTATION: CHIEF COMPLAINT: Difficulty swallowing, new onset hoarseness, dysphonia, odynophagia, and mild shortness of breath. HISTORY OF PRESENT ILLNESS: A 69-year-old male patient with a complex medical history including a previous coronary artery bypass graft and congestive heart failure, previous community-acquired pneumonia, elevated glucose levels, hypertension, hyperlipidemia, and history of acute respiratory failure. The patient presented to the emergency room with difficulty swallowing and new onset and worsening hoarseness. The patient also complained of mild pain in the chest and throat. He was recently admitted in April and at that time, he was found to have some mediastinal lymphadenopathy. He had followups as well as continued workup; however, the patient did not follow up with his appointments, and no further evaluation was made. Given the patient's recent CT scan showing mediastinal lymphadenopathy with tracheal and esophageal distortion as well as upper respiratory swelling, ENT was consulted for scope evaluation. PAST HISTORY MEDICATIONS: Please see HPI. PAST SURGICAL HISTORY: Please see HPI. CURRENT MEDICATIONS: 1. Carvedilol. 2. Melatonin. 3. Potassium chloride. 4. Prednisone. 5. Spironolactone. 6. Torsemide. SOCIAL AND FAMILY HISTORY: The patient lives with a nurse. The patient has assistance of living with a nurse who is in touch. However, the patient did not follow up to previous clinic appointments for workup for his mediastinal lymphadenopathy. REVIEW OF SYSTEMS: SKIN: Negative. EYES: Negative. EARS, NOSE, AND THROAT: Please see HPI. RESPIRATORY: Moderately short of breath. CARDIOVASCULAR: Negative. GASTROINTESTINAL: Negative. MUSCULOSKELETAL: Negative. NEUROLOGIC: Negative. HEMATOLOGIC: Negative. LYMPHATIC: Negative. IMMUNOLOGIC: Negative. ENDOCRINE: Negative. PHYSICAL EXAMINATION: GENERAL: The patient is alert, oriented, breathing comfortably with the assistance of nasal cannula. HEENT: Head and face; normocephalic, atraumatic. No facial skin lesions. No maxillary frontal or parotid gland or submandibular gland masses or tenderness. Eyes are equally round and reactive to light. Extraocular movements are intact. There is no nystagmus on lateral gaze. Ears, right and left pinna are normal. EACs clear. No evidence of effusion or infection. Nose, external nose is normal. Nasal cannula in place. Nasal mucosa healthy. Turbinates are healthy. No masses or lesions. Oral cavity, mucous membranes are moist. No evidence of floor of mouth, tongue, buccal, soft palate, hard palate, or pharyngeal infection or erythema or edema. Nasopharynx, hypopharynx, and larynx evaluated by flexible laryngoscopy procedure. Anesthesia: None. The flexible nasopharyngoscope was inserted through the right naris and traveled inferior to the inferior turbinates along the floor of the nasal cavity between the inferior turbinates and the septum. The soft palate was seen to elevate normally, and eustachian tubes bilaterally were without masses or obstruction, and no masses or lesions. The scope was advanced further, and the upper nasopharynx was evaluated and to be normal. The base of tongue, though prominent was overall normal. The vallecula had mild deviation or turning to the right. There was a small vallecular cyst on the left between the left base of tongue and the left epiglottis in the vallecula. The arytenoids were in place, and the false vocal folds and true vocal folds were moderately inflamed with thick mucus on the vocal folds. The abduction and abduction were normal. The patient was able to phonate E and also to sniff and abduct with a patent airway. The max phonation time was greater than 15 seconds. There were no masses or lesions in the piriform sinuses. The nasopharyngoscope was then pulled back and removed from the right naris, and the patient was breathing and tolerating the procedure without bleeding and without pain. NECK: No lymphadenopathy. Trachea is midline. No neck masses. NEUROLOGIC: The patient's cranial nerves 2 through 12 are grossly intact. Mood and affect are normal. DIAGNOSTIC DATA: CT scan; chest CT showing significant mediastinal lymphadenopathy and inflammation of the upper airway and upper respiratory tract. ASSESSMENT AND PLAN: The patient is a 69-year-old male patient who presented with some discomfort earlier today and had a CT scan that showed significant lymphadenopathy and was evaluated and admitted for further workup. Given the patient's flexible laryngoscopic exam and evaluation of the nasopharynx and hypopharynx, there is no head and neck primary tumor, there are no masses or lesions. Given the significant dysphonia is clear, there is laryngitis as well as mucus that is causing his dysphonia. Likely from a pulmonary source, given the mass in the chest, I recommend a CT-guided biopsy of the mediastinal mass and continued workup for primary source to evaluate treatment plans in the future and recommend continued supportive care with oxygen as needed. From Respiratory standpoint, given there is no clear head and neck infection and no clear etiology of infection, I would not recommend antibiotics at this point. However, the patient is fully available to follow up in clinic for evaluation of following of his vallecular cyst. However, there is no evidence that would cause any symptoms at this date. Job ID: [id number] [facility]
--- NOTE | 2019-09-26 18:12 | CON ---
DATE OF CONSULTATION: 09/26/2019 SERVICE: Pulmonary Medicine. REASON FOR CONSULTATION: Mediastinal lymphadenopathy. HISTORY OF PRESENT ILLNESS: The patient is a 69-year-old male with past medical history significant for mediastinal lymphadenopathy. He was supposed to follow up with me in clinic a month later with a repeat CT scan, but unfortunately, there was a miscommunication. As such, he ended up not having that CT scan performed. He returned to the hospital with complaints of hoarseness. A CT of the head and neck suggested that there was significant mediastinal lymphadenopathy, which progressed dramatically. Originally, it was thought the hoarseness was secondary to his large mediastinal lesions. That being said, over the course of the hospital stay, his hoarseness is completely got better, and he wants to go home. He denies any current fevers, chills, nausea, vomiting, or shortness of breath. We talked about different options moving forward. Ideally, we would be able to do an endoscopic bronchial ultrasound with fine-needle aspiration of this lesion. That being said, in order to get the most benefit out of it, we would need pathology via bedside, which going to be challenging to coordinate over the weekend. I gave him the option of going home, or staying through the weekend. He opted to go home. As such, we have set it up on Sunday morning. Otherwise, he has returned to his usual state of health. PAST MEDICAL HISTORY: 1. Obstructive sleep apnea, severe. 2. Coronary artery disease. 3. Chronic diastolic heart failure. 4. Hypertension. 5. Dyslipidemia. 6. Mediastinal lymphadenopathy. PAST SURGICAL HISTORY: 1. Coronary artery bypass graft x3 vessels. 2. AICD placement. FAMILY HISTORY: Noncontributory. SOCIAL HISTORY: Negative for current alcohol, tobacco, or illicit drug use. He has a 50-pack year history of smoking. He quit beer over 20 years ago. He has no exposure to chemicals, dust, asbestos, or tuberculosis otherwise. ALLERGIES: NO KNOWN DRUG ALLERGIES. MEDICATIONS: List of his inpatient medications was reviewed. No specific updates were made at this time. REVIEW OF SYSTEMS: General; head, ears, eyes, nose, throat; cardiovascular; respiratory; GI; ; musculoskeletal; neurologic; and skin are negative except as mentioned in the HPI. PHYSICAL EXAMINATION: VITAL SIGNS: Afebrile, pulse 71, blood pressure 125/55, respirations 20, and saturation 96% on 2 L nasal cannula. GENERAL: The patient is awake and alert, in no apparent distress. LUNGS: Decent air entry with no prolonged expiratory phase or wheezing present. HEART: Normal rate and regular. ABDOMEN: Soft, nontender, and nondistended. Bowel sounds are positive. MUSCULOSKELETAL: No cyanosis or clubbing. There is no pitting in the bilateral lower extremities. NEUROLOGIC: Grossly nonfocal. LABORATORY DATA: WBC 5.5, hemoglobin 14.5, platelets 149,000. INR 1.1. Basic metabolic profile and liver function studies otherwise unremarkable. IMAGING: CT of the neck demonstrates a very extensive superior mediastinal lymph nodes present. ASSESSMENT: 1. Mediastinal lymphadenopathy. 2. Obstructive sleep apnea. DISCUSSION AND PLAN: I have arranged for the patient to have an endoscopic bronchial guided ultrasound with fine-needle aspiration of the mediastinal lymph nodes. This will occur at 8:30 in the morning on Sunday, the . I will have him return to clinic to see me shortly after that procedure is done. Job ID: [id number]
--- NOTE | 2019-09-30 08:47 | DIS ---
DATE OF ADMISSION: 09/23/2019 DATE OF DISCHARGE: 09/26/2019 RESIDENT: Mary Mendenhall DO ADMITTING ATTENDING: Pieter Remy MD DISCHARGE ATTENDING: Pieter Remy MD CONSULT: 1. ENT, Dr. Garcia. 2. Pulmonology, Dr. Whelan. 3. Speech eval/treat. PROCEDURES: Soft tissue neck CT, which showed progressive malignancy centered at the upper mediastinum with associated metastatic adenopathy, particularly imaged on the basis of exam. Barium swallow, which was normal esophagram. CT chest; interval size increase, anterior superior mediastinal mass with mass effect upon SVC as well as brachiocephalic veins. There is contrast within the veins of the chest indicating a component of SVC obstruction. T9 spinous process as well as lamina and pedicle lytic process suggests metastases. Flexible nasopharyngoscope done by Dr. Garcia, which did not show any masses or lesions. Mucous on the vocal cords on . DISCHARGE MEDICATIONS: 1. Spironolactone 25 mg p.o. daily. 2. Carvedilol 6.25 mg p.o. daily. 3. Melatonin 3 mg p.o. at bedtime. 4. Potassium chloride 20 mEq p.o. daily. 5. Torsemide 20 mg p.o. b.i.d. 6. DuoNeb 3 mL nebulizer q.4 hours p.r.n. for shortness of breath. 7. Spiriva 1 puff inhaled p.r.n. HISTORY OF PRESENT ILLNESS/HOSPITAL COURSE: Mr. Danny Santoro is a 69-year-old male with a history of heart failure combined, systolic and diastolic, and CAD, status post 4-vessel CABG. The patient was seen in the hospital in April and suggested to have followup CT scan of a mediastinal mass that was suggestive of lymphoma at that time. The patient came back into the ER with hoarseness and worsening respiratory status and was found to have mediastinal mass, which had grown in size and was compressing the trachea, causing deviation and shortness of breath, and on occasion, hypoxic respiratory failure. The patient's airway was deemed unsure of safety for breathing. He was admitted as inpatient because of this. He was started on steroids to help reduce the swelling around the trachea in hopes that this would open up his airway, breathing better. He did get a little bit improved respiratory status while here. ENT saw him and performed a scope, did not see any mass that was able to take a biopsy on. The next day, Radiology saw the patient and deemed him unable to make a CT-guided biopsy of the mediastinal mass due to location. On 09/26, Dr. Whelan, powder coat painter came and saw the patient and cleared him for discharge to perform a bronch with a possible tissue biopsy to be performed on 09/29 at 8:30 in the morning. The patient agrees on the discharge and he was given return precautions to return if he hears any stridor-type noises as well as has dyspnea and shortness of breath or any difficulty breathing to return to the emergency department immediately. He understood these and voiced back to me and repeated back these return precautions. DISPOSITION: The patient was stable upon discharge. DISCHARGE INSTRUCTIONS: 1. Location: Home. 2. Diet: Heart healthy. 3. Activity: As tolerated. 4. Followup: Follow up on 09/29/[address] Whelan for a bronch at [facility]. Job ID: [id number] [facility]
== END 2019-09-26 18:06 | disposition home or self-care (01) | DRG 181 ==
LOC: ERS 07:18 → OBSVTOIN 10:11 → ONC 10:11
PROVIDERS: ADMIT Family Medicine; ATTEND Family Medicine
PROC: 0CJY8ZZ Inspection of Mouth and Throat, Via Natural or Artificial Opening Endoscopic (ICD-10-PCS; principal; 2019-09-23)
DX: C38.3 Malignant neoplasm of mediastinum, part unspecified (principal); I50.32 Chronic diastolic (congestive) heart failure; I11.0 Hypertensive heart disease with heart failure; E78.5 Hyperlipidemia, unspecified; F17.210 Nicotine dependence, cigarettes, uncomplicated; G47.33 Obstructive sleep apnea (adult) (pediatric); I73.9 Peripheral vascular disease, unspecified; I25.10 Atherosclerotic heart disease of native coronary artery without angina pectoris; R59.1 Generalized enlarged lymph nodes; R06.89 Other abnormalities of breathing; Z95.1 Presence of aortocoronary bypass graft; I25.2 Old myocardial infarction; Z95.810 Presence of automatic (implantable) cardiac defibrillator
CPT/HCPCS: 36415; 36416; 70491; 71260; 74220; 74230; 80053; 85014; 85018; 85025; 85049; 85610; 85730; 94640; 96374; J1100; J7512; J7620; Q9967

== ENCOUNTER 2019-09-29 07:09 | Day surgery (SDC) | payer MEDICARE ==
[2019-09-26 16:35] VITALS: BMI 51.6
[2019-09-29] MEDS ORDERED: Fentanyl 100 MCG/2 ML VIAL ONE (08:23)
[2019-09-29] MEDS ORDERED: Midazolam HCl 2 mg/2 ml Vial ONE (08:23)
[2019-09-29] MEDS ORDERED: Lidocaine 4% Topical Sol 50 ML BOT ONE (08:36)
[2019-09-29] MEDS ORDERED: PROPOFOL 200 MG/20 ML VIAL ONE (09:54)
[2019-09-29] MEDS ORDERED: PHENYLEPHRINE-NS 100 MCG/ML 10 ML SYRINGE ONE (09:54)
[2019-09-29] MEDS ORDERED: Succinylcholine Chloride 20 MG/ML 10 ml SYRINGE FS ONE (09:54)
[2019-09-29] MEDS ORDERED: Lidocaine 1% PF 5 ML VIAL ONE (09:54)
--- NOTE | 2019-09-29 13:29 | OP ---
DATE OF PROCEDURE: 09/29/2019 SERVICE: Pulmonary Medicine. PROCEDURE PERFORMED: Fiberoptic bronchoscopy with, 1. Limited airway inspection. 2. Endoscopic bronchial ultrasound-guided transbronchial needle aspiration of lymph node VII. PREPROCEDURE DIAGNOSIS: Mediastinal lymphadenopathy. POSTPROCEDURE DIAGNOSES: Carcinoma. ANESTHESIA: General. PREANESTHESIA ASSESSMENT: H and P had been performed. The patient's medications and allergies were reviewed. Informed consent was obtained after discussing the rationale, benefits, and risks of the procedure. Alternative options for sample collection were discussed. DESCRIPTION OF PROCEDURE: The patient was positively identified with name and date of . The proposed procedure was verified. After induction of anesthesia, the curvilinear endoscopic bronchial ultrasound Olympus bronchoscope was introduced through the endotracheal tube and into the direct tracheobronchial tree. Limited visual airway inspection was performed and no abnormality was identified in the trachea or mainstem bronchi. The aj was dull. The bronchoscope was then withdrawn into the trachea, and a que survey was performed. There was massive lymphadenopathy throughout station 7, 4, and 2. Ultrasound-guided fine-needle aspiration of station 7 was completed. There was no significant bleeding post biopsy. The patient had stable vitals throughout the entire procedure without significant respiratory events. FINDINGS: 1. No endobronchial disease of the distal trachea or mainstem bronchi on this limited evaluation. 2. His aj was quite dull. 3. Rapid on-site examination revealed carcinoma. SPECIMENS OBTAINED: 1. FNA of station 7 for cytology. 2. Cell block of station 4. 3. Couple passes were performed for flow cytometry. COMPLICATIONS: None. ESTIMATED BLOOD LOSS: Less than 5 mL. DISPOSITION: Home. Job ID: [id number]
--- NOTE | 2019-09-30 11:05 | EKG ---
Test Reason : PREOP Blood Pressure : / mmHG Vent. Rate : 072 BPM Atrial Rate : 072 BPM P-R Int : 184 ms QRS Dur : 098 ms QT Int : 392 ms P-R-T Axes : 046 -01 105 degrees QTc Int : 429 ms Normal sinus rhythm Septal infarct (cited on or before 15-SEP-2017) Abnormal ECG When compared with ECG of 03-MAR-2019 13:12, No significant change was found Confirmed by DR. Uzair FULLER ([id number]) on 09/30/2019 11:04:50 AM Referred By: LESLIE Confirmed By:DR. Uzair FULLER
== END 2019-09-29 13:30 | disposition home or self-care (01) ==
LOC: SDC 07:09
PROVIDERS: ATTEND Internal Medicine
PROC: 07D78ZX Extraction of Thorax Lymphatic, Via Natural or Artificial Opening Endoscopic, Diagnostic (ICD-10-PCS; principal; 2019-09-29)
DX: C96.9 Malignant neoplasm of lymphoid, hematopoietic and related tissue, unspecified (principal); R59.0 Localized enlarged lymph nodes; Z95.1 Presence of aortocoronary bypass graft; Z79.899 Other long term (current) drug therapy
CPT/HCPCS: 88172; 88173; 88177; 88184; 88305; 88341; 88342; 88360; 93005; 93010; J2001; J2250; J2704; J3010